=== PATIENT | male | born 1940 | race Caucasian/White ===

== ENCOUNTER 2017-10-21 11:59 | Inpatient (IN) | payer MEDICARE, BC ==
[2017-10-21] MEDS: SOD CHLORIDE 0.9% 500 ML IV (12:15)
[2017-10-21] MEDS: ASPIRIN 325 MG TAB PO (12:45)
[2017-10-21 12:58] LABS: ADD MAN DIFF? NO
[2017-10-21 13:00] LABS: ABNORMAL IP MESSAGE 1; BASOPHILS % 0.6 % (0.0-2.0); EOSINOPHILS % 0.2 % (0.0-7.0); HEMATOCRIT 49.2 % (42.0-52.0); HEMOGLOBIN 16.3 g/dl (14.0-18.0); LYMPHOCYTES # 0.4 10^3/ul (0.8-2.9); LYMPHOCYTES % 7.7 % (15.0-51.0); MEAN CORPUSCULAR HEMOGLOBIN 30.4 pg (29.0-33.0); MEAN CORPUSCULAR HGB CONC 33.1 g/dl (32.0-37.0); MEAN CORPUSCULAR VOLUME 91.8 fl (82.0-101.0); MEAN PLATELET VOLUME 10.8 fl (7.4-10.4); MONOCYTE # 0.3 10^3/ul (0.3-0.9); MONOCYTES % 5.5 % (0.0-11.0); NEUTROPHIL # 4.7 10^3/ul (1.6-7.5); NEUTROPHILS % 85.8 % (39.0-77.0); PLATELET COUNT 193 10^3/UL (140-415); POSITIVE DIFF @See below; RED BLOOD COUNT 5.36 10^6/ul (4.70-6.10)
[2017-10-21 13:00] LABS: WHITE BLOOD COUNT 5.4 10^3/ul (4.8-10.8)
[2017-10-21] MEDS: DILTIAZEM 25 MG INJ IV (13:15)
[2017-10-21] MEDS: METOPROLOL 5 MG INJ IV (13:16)
[2017-10-21] MEDS: morphine 4 MG/ML VIAL IV ×3 (13:26→20:00)
[2017-10-21] MEDS: ONDANSETRON 4 MG INJ IV ×3 (13:26→20:08)
[2017-10-21 13:27] LABS: INR 1.13; PROTIME 14.7 Sec (11.9-14.9); PT RATIO 1.1
[2017-10-21 13:28] LABS: ANION GAP 20 (8-16); BLOOD UREA NITROGEN 10 mg/dl (7-20); CALCIUM 8.7 mg/dl (8.4-10.2); CARBON DIOXIDE 27 mmol/L (21-31); CHLORIDE 103 mmol/L (97-110); CREATININE 0.68 mg/dl (0.61-1.24); GLUCOSE 133 mg/dl (70-220); PARTIAL THROMBOPLASTIN TIME 31.2 Sec (25.0-35.0); POTASSIUM 3.9 mmol/L (3.5-5.1); SODIUM 146 mmol/L (135-144)
[2017-10-21] MEDS: LORAZEPAM 2 MG INJ IV (13:35)
[2017-10-21 13:41] LABS: B-TYPE NATRIURETIC PEPTIDE 2020 PG/ML (0-450)
[2017-10-21 13:51] LABS: TROPONIN-I < 0.012 ng/ml (0.00-0.12)
[2017-10-21] MEDS: ACETAMINOPHEN 325 MG TAB PO (15:28)
[2017-10-21 17:23] LABS: ALANINE AMINOTRANSFERASE 39 IU/L (13-69); ALBUMIN 4.3 g/dl (3.3-4.9); ALKALINE PHOSPHATASE 88 IU/L (42-121); ASPARTATE AMINO TRANSFERASE 47 IU/L (15-46); BILIRUBIN,INDIRECT 0.9 mg/dl (0-1.1); BILIRUBIN,TOTAL 0.9 mg/dl (0.2-1.3); LIPASE 129 U/L (23-300)
[2017-10-21] MEDS ORDERED: NACL 0.9% 3 ML SYG IV (19:30)
[2017-10-21] MEDS ORDERED: ACETAMINOPHEN 325 MG TAB PO (19:30)
[2017-10-21 20:45] LABS: CREATINE KINASE 34 IU/L (23-200)
[2017-10-21 20:58] LABS: CK INDEX 3.3; CK-MB 1.13 ng/ml (0.0-2.4); TROPONIN-I < 0.012 ng/ml (0.00-0.12)
[2017-10-21] MEDS: DILTIAZEM (CD) 180 MG CAP PO (22:36)
[2017-10-21] MEDS: ASPIRIN (EC) 81 MG TAB PO (22:37)
[2017-10-21] MEDS: BUSPIRONE 5 MG TAB PO (22:37)
[2017-10-21] MEDS: SUCRALFATE 1 GM TAB PO (22:38)
[2017-10-21] MEDS: ATORVASTATIN 20 MG TAB PO (22:38)
[2017-10-21] MEDS: APIXABAN 5 MG TABLET PO (22:38)
[2017-10-21] MEDS: METOPROLOL 100 MG TAB PO (22:39)
[2017-10-22 01:00] LABS: CREATINE KINASE 31 IU/L (23-200)
[2017-10-22 01:12] LABS: CK INDEX 3.9
[2017-10-22 01:36] LABS: TROPONIN-I < 0.012 ng/ml (0.00-0.12)
[2017-10-22] MEDS: morphine 4 MG/ML VIAL IV ×3 (02:28→20:50)
[2017-10-22] MEDS: ONDANSETRON 4 MG INJ IV ×4 (02:28→20:50)
[2017-10-22 05:03] LABS: ADD MAN DIFF? NO
[2017-10-22 05:09] LABS: ABNORMAL IP MESSAGE 1; BASOPHILS % 0.4 % (0.0-2.0); HEMATOCRIT 44.9 % (42.0-52.0); HEMOGLOBIN 15.1 g/dl (14.0-18.0); LYMPHOCYTES # 0.4 10^3/ul (0.8-2.9); MEAN CORPUSCULAR HEMOGLOBIN 30.6 pg (29.0-33.0); MEAN CORPUSCULAR HGB CONC 33.6 g/dl (32.0-37.0); MEAN CORPUSCULAR VOLUME 90.9 fl (82.0-101.0); MEAN PLATELET VOLUME 10.9 fl (7.4-10.4); MONOCYTE # 0.5 10^3/ul (0.3-0.9); MONOCYTES % 10.4 % (0.0-11.0); NEUTROPHIL # 4.1 10^3/ul (1.6-7.5); PLATELET COUNT 148 10^3/UL (140-415); POSITIVE DIFF @See below; RED BLOOD COUNT 4.94 10^6/ul (4.70-6.10); RED CELL DISTRIBUTION WIDTH 14.1 % (11.5-14.5)
[2017-10-22 05:37] LABS: ALANINE AMINOTRANSFERASE 33 IU/L (13-69); ALBUMIN 3.7 g/dl (3.3-4.9); ALBUMIN/GLOBULIN RATIO 1.02; ALKALINE PHOSPHATASE 77 IU/L (42-121); ANION GAP 11 (8-16); ASPARTATE AMINO TRANSFERASE 36 IU/L (15-46); BILIRUBIN,INDIRECT 1.6 mg/dl (0-1.1); BILIRUBIN,TOTAL 1.6 mg/dl (0.2-1.3); BLOOD UREA NITROGEN 9 mg/dl (7-20); CALCIUM 8.3 mg/dl (8.4-10.2); CARBON DIOXIDE 28 mmol/L (21-31); CHLORIDE 103 mmol/L (97-110); CREATININE 0.55 mg/dl (0.61-1.24); GLUCOSE 104 mg/dl (70-220); MAGNESIUM 1.6 mg/dl (1.7-2.5); POTASSIUM 3.5 mmol/L (3.5-5.1); SODIUM 138 mmol/L (135-144); TOTAL PROTEIN 7.3 g/dl (6.1-8.1)
[2017-10-22] MEDS: BUSPIRONE 5 MG TAB PO ×2 (09:10→20:50)
[2017-10-22] MEDS: DILTIAZEM (CD) 180 MG CAP PO (09:11)
[2017-10-22] MEDS: SUCRALFATE 1 GM TAB PO ×2 (09:12→20:49)
[2017-10-22] MEDS: ASPIRIN (EC) 81 MG TAB PO (09:13)
[2017-10-22] MEDS: APIXABAN 5 MG TABLET PO ×2 (09:13→20:50)
[2017-10-22] MEDS: LORAZEPAM 0.5 MG TAB PO (09:19)
[2017-10-22] MEDS: PANTOPRAZOLE (EC) 40 MG TAB PO (09:19)
[2017-10-22] MEDS: POTASSIUM CHLORIDE (SR) 10 MEQ TAB PO (15:15)
[2017-10-22] MEDS: METOPROLOL 100 MG TAB PO ×2 (15:16→20:50)
[2017-10-22] MEDS ORDERED: METOPROLOL 50 MG TAB (20:05)
[2017-10-22] MEDS: ATORVASTATIN 20 MG TAB PO (20:49)
[2017-10-23 05:57] LABS: ADD MAN DIFF? NO
[2017-10-23 06:06] LABS: ABNORMAL IP MESSAGE 1; BASOPHILS % 0.2 % (0.0-2.0); HEMATOCRIT 46.7 % (42.0-52.0); HEMOGLOBIN 15.3 g/dl (14.0-18.0); LYMPHOCYTES # 0.3 10^3/ul (0.8-2.9); LYMPHOCYTES % 8.4 % (15.0-51.0); MEAN CORPUSCULAR HEMOGLOBIN 30.3 pg (29.0-33.0); MEAN CORPUSCULAR HGB CONC 32.8 g/dl (32.0-37.0); MEAN CORPUSCULAR VOLUME 92.5 fl (82.0-101.0); MEAN PLATELET VOLUME 11.8 fl (7.4-10.4); MONOCYTE # 0.4 10^3/ul (0.3-0.9); MONOCYTES % 9.4 % (0.0-11.0); NEUTROPHIL # 3.3 10^3/ul (1.6-7.5); NEUTROPHILS % 81.8 % (39.0-77.0); PLATELET COUNT 139 10^3/UL (140-415); POSITIVE DIFF @See below; RED BLOOD COUNT 5.05 10^6/ul (4.70-6.10); RED CELL DISTRIBUTION WIDTH 14.1 % (11.5-14.5)
[2017-10-23 06:06] LABS: WHITE BLOOD COUNT 4.1 10^3/ul (4.8-10.8)
[2017-10-23 06:45] LABS: ANION GAP 12 (8-16); BLOOD UREA NITROGEN 14 mg/dl (7-20); CARBON DIOXIDE 32 mmol/L (21-31); CHLORIDE 101 mmol/L (97-110); CREATININE 0.79 mg/dl (0.61-1.24); GLUCOSE 91 mg/dl (70-220); MAGNESIUM 1.8 mg/dl (1.7-2.5); POTASSIUM 3.9 mmol/L (3.5-5.1); SODIUM 141 mmol/L (135-144)
[2017-10-23] MEDS: PANTOPRAZOLE (EC) 40 MG TAB PO (10:16)
[2017-10-23] MEDS: SUCRALFATE 1 GM TAB PO ×2 (10:16→21:18)
[2017-10-23] MEDS: APIXABAN 5 MG TABLET PO ×2 (10:16→21:18)
[2017-10-23] MEDS: BUSPIRONE 5 MG TAB PO ×2 (10:16→21:18)
[2017-10-23] MEDS: ASPIRIN (EC) 81 MG TAB PO (10:16)
[2017-10-23] MEDS: METOPROLOL 100 MG TAB PO ×2 (10:17→21:18)
[2017-10-23] MEDS: DILTIAZEM (CD) 180 MG CAP PO (10:17)
[2017-10-23] MEDS: MAGNESIUM SULFATE 2 GM/50 ML 50 ML IVPB (17:55)
[2017-10-23] MEDS: METOCLOPRAMIDE 5 MG TAB PO (19:00)
[2017-10-23] MEDS: ATORVASTATIN 20 MG TAB PO (21:18)
[2017-10-24] MEDS ORDERED: METOCLOPRAMIDE 10 MG INJ IV
[2017-10-24] MEDS: METOCLOPRAMIDE 5 MG TAB PO ×2 (05:32)
[2017-10-24] MEDS: APIXABAN 5 MG TABLET PO (11:02)
[2017-10-24] MEDS: ASPIRIN (EC) 81 MG TAB PO (11:02)
[2017-10-24] MEDS: PANTOPRAZOLE (EC) 40 MG TAB PO (11:02)
[2017-10-24] MEDS: DILTIAZEM (CD) 240 MG CAP PO (11:04)
[2017-10-24] MEDS: BUSPIRONE 5 MG TAB PO (11:04)
== END 2017-10-24 14:24 | disposition home or self-care (01) | DRG 392 ==
LOC: E/R 11:59 → MS3 14:13
DX: K21.0 Gastro-esophageal reflux disease with esophagitis (principal); I42.1 Obstructive hypertrophic cardiomyopathy; I48.91 Unspecified atrial fibrillation; R07.89 Other chest pain; I25.10 Atherosclerotic heart disease of native coronary artery without angina pectoris; I10 Essential (primary) hypertension; F41.9 Anxiety disorder, unspecified; K80.20 Calculus of gallbladder without cholecystitis without obstruction; Z95.5 Presence of coronary angioplasty implant and graft
CPT/HCPCS: 36415; 71045; 74176; 80048; 80053; 80076; 82550; 82553; 83690; 83735; 83880; 84484; 85025; 85610; 85730; 93005; 96374; 96375; 99291-25

== ENCOUNTER 2017-11-23 14:08 | Emergency (ER) | payer MEDICARE, BC ==
[2017-11-23] MEDS: LORAZEPAM 2 MG INJ IV (17:29)
[2017-11-23 17:44] LABS: ADD MAN DIFF? NO
[2017-11-23 17:52] LABS: ABNORMAL IP MESSAGE 1; BASOPHILS % 0.9 % (0.0-2.0); EOSINOPHILS % 0.3 % (0.0-7.0); HEMATOCRIT 46.8 % (42.0-52.0); HEMOGLOBIN 15.7 g/dl (14.0-18.0); LYMPHOCYTES # 0.3 10^3/ul (0.8-2.9); LYMPHOCYTES % 9.7 % (15.0-51.0); MEAN CORPUSCULAR HEMOGLOBIN 30.1 pg (29.0-33.0); MEAN CORPUSCULAR HGB CONC 33.5 g/dl (32.0-37.0); MEAN CORPUSCULAR VOLUME 89.8 fl (82.0-101.0); MONOCYTE # 0.4 10^3/ul (0.3-0.9); MONOCYTES % 12.2 % (0.0-11.0); NEUTROPHIL # 2.7 10^3/ul (1.6-7.5); NEUTROPHILS % 76.6 % (39.0-77.0); PLATELET COUNT 140 10^3/UL (140-415); POSITIVE DIFF @See below; RED BLOOD COUNT 5.21 10^6/ul (4.70-6.10); RED CELL DISTRIBUTION WIDTH 14.6 % (11.5-14.5)
[2017-11-23 17:52] LABS: WHITE BLOOD COUNT 3.5 10^3/ul (4.8-10.8)
[2017-11-23 18:09] LABS: ALANINE AMINOTRANSFERASE 30 IU/L (13-69); ALBUMIN 4.3 g/dl (3.3-4.9); ALBUMIN/GLOBULIN RATIO 1.26; ALKALINE PHOSPHATASE 88 IU/L (42-121); ANION GAP 14 (8-16); ASPARTATE AMINO TRANSFERASE 37 IU/L (15-46); BILIRUBIN,INDIRECT 1.7 mg/dl (0-1.1); BILIRUBIN,TOTAL 1.7 mg/dl (0.2-1.3); BLOOD UREA NITROGEN 11 mg/dl (7-20); CALCIUM 8.9 mg/dl (8.4-10.2); CARBON DIOXIDE 26 mmol/L (21-31); CHLORIDE 105 mmol/L (97-110); CREATINE KINASE 44 IU/L (23-200); CREATININE 0.69 mg/dl (0.61-1.24); GLUCOSE 101 mg/dl (70-220); POTASSIUM 3.4 mmol/L (3.5-5.1); SODIUM 142 mmol/L (135-144); TOTAL PROTEIN 7.7 g/dl (6.1-8.1)
[2017-11-23 18:21] LABS: B-TYPE NATRIURETIC PEPTIDE 2970 PG/ML (0-450); CK INDEX 2.5
[2017-11-23 18:31] LABS: CK-MB 1.11 ng/ml (0.0-2.4); TROPONIN-I < 0.012 ng/ml (0.00-0.12)
[2017-11-23] MEDS: ALBUTEROL 0.083% (NEB) 2.5 MG/3 ML AMP INH (19:12)
[2017-11-23] MEDS: IPRATROPIUM (NEB) 0.5 MG/2.5 ML AMP INH (19:12)
== END 2017-11-23 20:37 | disposition home or self-care (01) ==
LOC: E/R 14:08
DX: R06.02 Shortness of breath (principal); R00.2 Palpitations; I10 Essential (primary) hypertension; Z79.82 Long term (current) use of aspirin; Z98.61 Coronary angioplasty status
CPT/HCPCS: 71045; 80053; 82550; 82553; 83880; 84484; 85025; 93005; 94664; 96374; 99285-25

== ENCOUNTER 2018-02-23 14:33 | Inpatient (IN) | payer MEDICARE, BC ==
[2018-02-23 15:18] LABS: ADD MAN DIFF? NO
[2018-02-23 15:20] LABS: ABNORMAL IP MESSAGE 1; BASOPHILS % 0.7 % (0.0-2.0); HEMATOCRIT 47.6 % (42.0-52.0); HEMOGLOBIN 15.7 g/dl (14.0-18.0); LYMPHOCYTES # 0.5 10^3/ul (0.8-2.9); LYMPHOCYTES % 12.8 % (15.0-51.0); MEAN CORPUSCULAR HEMOGLOBIN 29.8 pg (29.0-33.0); MEAN CORPUSCULAR VOLUME 90.3 fl (82.0-101.0); MEAN PLATELET VOLUME 11.5 fl (7.4-10.4); MONOCYTE # 0.4 10^3/ul (0.3-0.9); MONOCYTES % 10.4 % (0.0-11.0); NEUTROPHIL # 3.2 10^3/ul (1.6-7.5); NEUTROPHILS % 75.9 % (39.0-77.0); PLATELET COUNT 131 10^3/UL (140-415); POSITIVE DIFF @See below; RED BLOOD COUNT 5.27 10^6/ul (4.70-6.10); RED CELL DISTRIBUTION WIDTH 14.1 % (11.5-14.5)
[2018-02-23 15:20] LABS: WHITE BLOOD COUNT 4.2 10^3/ul (4.8-10.8)
[2018-02-23] MEDS: ONDANSETRON 4 MG INJ IV ×4 (15:27→23:05)
[2018-02-23] MEDS: SOD CHLORIDE 0.9% 1,000 ML IV (15:27)
[2018-02-23] MEDS: morphine 4 MG/ML VIAL IV (15:27)
[2018-02-23 15:40] LABS: ALANINE AMINOTRANSFERASE 34 IU/L (13-69); ALBUMIN 4.4 g/dl (3.3-4.9); ALBUMIN/GLOBULIN RATIO 1.12; ALKALINE PHOSPHATASE 87 IU/L (42-121); AMYLASE 51 U/L (11-123); ANION GAP 22 (8-16); ASPARTATE AMINO TRANSFERASE 64 IU/L (15-46); BILIRUBIN,INDIRECT 1.7 mg/dl (0-1.1); BILIRUBIN,TOTAL 1.7 mg/dl (0.2-1.3); BLOOD UREA NITROGEN 11 mg/dl (7-20); CARBON DIOXIDE 26 mmol/L (21-31); CHLORIDE 102 mmol/L (97-110); CREATININE 0.75 mg/dl (0.61-1.24); GLUCOSE 89 mg/dl (70-220); LIPASE 134 U/L (23-300); POTASSIUM 3.9 mmol/L (3.5-5.1); SODIUM 146 mmol/L (135-144); TOTAL PROTEIN 8.3 g/dl (6.1-8.1)
[2018-02-23 15:45] LABS: INR 1.38; PROTIME 17.2 Sec (11.9-14.9); PT RATIO 1.3
[2018-02-23 15:46] LABS: PARTIAL THROMBOPLASTIN TIME 35.6 Sec (25.0-35.0)
[2018-02-23 15:50] LABS: B-TYPE NATRIURETIC PEPTIDE 2440 PG/ML (0-450); TROPONIN-I < 0.012 ng/ml (0.00-0.12)
[2018-02-23] MEDS: HYDROmorphONE 1 MG/5 ML IV SYRINGE IV ×2 (16:47→20:00)
[2018-02-23] MEDS: SOD CHLORIDE 0.9% 100 ML (17:10)
[2018-02-23] MEDS: IOHEXOL 300MG/ML 150 ML BTL (17:11)
[2018-02-23] MEDS ORDERED: ACETAMINOPHEN 325 MG TAB PO (18:30)
[2018-02-23] MEDS: METOPROLOL 100 MG TAB PO (22:30)
[2018-02-23] MEDS: APIXABAN 5 MG TABLET PO (22:30)
[2018-02-23] MEDS ORDERED: ZOLPIDEM 5 MG TAB PO (22:30)
[2018-02-23] MEDS: BUSPIRONE 5 MG TAB PO (22:30)
[2018-02-23] MEDS: SUCRALFATE 1 GM TAB PO (22:30)
[2018-02-23] MEDS: morphine 2 MG INJ IV (23:10)
[2018-02-24] MEDS: ONDANSETRON 4 MG INJ IV ×2 (01:13→09:03)
[2018-02-24] MEDS: DICYCLOMINE 10 MG CAP PO (01:13)
[2018-02-24 06:25] LABS: ADD MAN DIFF? NO
[2018-02-24 06:28] LABS: ABNORMAL IP MESSAGE 1; BASOPHILS % 0.3 % (0.0-2.0); HEMATOCRIT 44.3 % (42.0-52.0); HEMOGLOBIN 14.7 g/dl (14.0-18.0); LYMPHOCYTES # 0.2 10^3/ul (0.8-2.9); LYMPHOCYTES % 7.2 % (15.0-51.0); MEAN CORPUSCULAR HEMOGLOBIN 29.7 pg (29.0-33.0); MEAN CORPUSCULAR HGB CONC 33.2 g/dl (32.0-37.0); MEAN CORPUSCULAR VOLUME 89.5 fl (82.0-101.0); MEAN PLATELET VOLUME 11.5 fl (7.4-10.4); MONOCYTE # 0.2 10^3/ul (0.3-0.9); MONOCYTES % 7.2 % (0.0-11.0); NEUTROPHIL # 2.7 10^3/ul (1.6-7.5); NEUTROPHILS % 84.7 % (39.0-77.0); PLATELET COUNT 105 10^3/UL (140-415); POSITIVE DIFF @See below; RED BLOOD COUNT 4.95 10^6/ul (4.70-6.10); RED CELL DISTRIBUTION WIDTH 14.1 % (11.5-14.5)
[2018-02-24 06:28] LABS: WHITE BLOOD COUNT 3.2 10^3/ul (4.8-10.8)
[2018-02-24 06:50] LABS: ALANINE AMINOTRANSFERASE 30 IU/L (13-69); ALBUMIN/GLOBULIN RATIO 1.11; ALKALINE PHOSPHATASE 76 IU/L (42-121); ANION GAP 21 (8-16); ASPARTATE AMINO TRANSFERASE 52 IU/L (15-46); BILIRUBIN,INDIRECT 1.2 mg/dl (0-1.1); BILIRUBIN,TOTAL 1.2 mg/dl (0.2-1.3); BLOOD UREA NITROGEN 10 mg/dl (7-20); CALCIUM 8.6 mg/dl (8.4-10.2); CARBON DIOXIDE 25 mmol/L (21-31); CHLORIDE 104 mmol/L (97-110); CREATININE 0.64 mg/dl (0.61-1.24); GLUCOSE 127 mg/dl (70-220); LIPASE 36 U/L (23-300); POTASSIUM 3.9 mmol/L (3.5-5.1); SODIUM 146 mmol/L (135-144); TOTAL PROTEIN 7.6 g/dl (6.1-8.1)
[2018-02-24 07:01] LABS: AMYLASE 41 U/L (11-123)
[2018-02-24] MEDS: PANTOPRAZOLE (EC) 40 MG TAB PO (07:05)
[2018-02-24] MEDS: LORAZEPAM 0.5 MG TAB PO ×2 (09:03→20:38)
[2018-02-24] MEDS: BUSPIRONE 5 MG TAB PO ×2 (09:04→20:38)
[2018-02-24] MEDS: SUCRALFATE 1 GM TAB PO ×2 (09:04→20:38)
[2018-02-24] MEDS: APIXABAN 5 MG TABLET PO ×2 (09:04→20:38)
[2018-02-24] MEDS: morphine 2 MG INJ IV ×2 (09:04→20:38)
[2018-02-24] MEDS: ASPIRIN (EC) 81 MG TAB PO (09:04)
[2018-02-24] MEDS: DILTIAZEM (CD) 180 MG CAP PO (09:05)
[2018-02-24] MEDS: METOPROLOL 100 MG TAB PO ×2 (09:05→20:39)
[2018-02-24 12:15] LABS: TROPONIN-I < 0.012 ng/ml (0.00-0.12)
[2018-02-24] MEDS: ATORVASTATIN 20 MG TAB PO (20:38)
[2018-02-25] MEDS: PANTOPRAZOLE (EC) 40 MG TAB PO (06:13)
[2018-02-25] MEDS: DILTIAZEM (CD) 180 MG CAP PO ×2 (08:19→20:17)
[2018-02-25] MEDS: SUCRALFATE 1 GM TAB PO ×2 (08:19→20:16)
[2018-02-25] MEDS: BUSPIRONE 5 MG TAB PO ×2 (08:19→20:17)
[2018-02-25] MEDS: APIXABAN 5 MG TABLET PO ×2 (08:20→20:16)
[2018-02-25] MEDS: METOPROLOL 100 MG TAB PO ×2 (08:20→20:16)
[2018-02-25] MEDS: ASPIRIN (EC) 81 MG TAB PO (08:20)
[2018-02-25 08:24] LABS: ADD MAN DIFF? NO
[2018-02-25 08:32] LABS: ABNORMAL IP MESSAGE 1; BASOPHILS % 0.4 % (0.0-2.0); EOSINOPHILS % 0.4 % (0.0-7.0); HEMATOCRIT 46.4 % (42.0-52.0); HEMOGLOBIN 14.9 g/dl (14.0-18.0); LYMPHOCYTES # 0.6 10^3/ul (0.8-2.9); LYMPHOCYTES % 11.4 % (15.0-51.0); MEAN CORPUSCULAR HEMOGLOBIN 29.6 pg (29.0-33.0); MEAN CORPUSCULAR HGB CONC 32.1 g/dl (32.0-37.0); MEAN CORPUSCULAR VOLUME 92.1 fl (82.0-101.0); MEAN PLATELET VOLUME 11.9 fl (7.4-10.4); MONOCYTE # 0.5 10^3/ul (0.3-0.9); MONOCYTES % 10.1 % (0.0-11.0); NEUTROPHIL # 3.8 10^3/ul (1.6-7.5); NEUTROPHILS % 77.5 % (39.0-77.0); PLATELET COUNT 108 10^3/UL (140-415); POSITIVE DIFF @See below; RED BLOOD COUNT 5.04 10^6/ul (4.70-6.10); RED CELL DISTRIBUTION WIDTH 14.5 % (11.5-14.5)
[2018-02-25 08:32] LABS: WHITE BLOOD COUNT 4.9 10^3/ul (4.8-10.8)
[2018-02-25 08:47] LABS: ANION GAP 17 (8-16); BLOOD UREA NITROGEN 10 mg/dl (7-20); CALCIUM 8.6 mg/dl (8.4-10.2); CARBON DIOXIDE 27 mmol/L (21-31); CHLORIDE 101 mmol/L (97-110); CREATININE 0.69 mg/dl (0.61-1.24); GLUCOSE 92 mg/dl (70-220); POTASSIUM 3.1 mmol/L (3.5-5.1); SODIUM 142 mmol/L (135-144)
[2018-02-25] MEDS: POTASSIUM CHLORIDE 100 ML IVPB (12:38)
[2018-02-25] MEDS: POTASSIUM CHLORIDE (SR) 10 MEQ TAB PO (12:38)
[2018-02-25] MEDS: ATORVASTATIN 20 MG TAB PO (20:16)
[2018-02-26] MEDS: PANTOPRAZOLE (EC) 40 MG TAB PO (05:24)
[2018-02-26 07:11] LABS: ADD MAN DIFF? NO
[2018-02-26 07:13] LABS: ABNORMAL IP MESSAGE 1; BASOPHILS % 0.6 % (0.0-2.0); EOSINOPHILS % 1.2 % (0.0-7.0); HEMATOCRIT 42.8 % (42.0-52.0); HEMOGLOBIN 13.8 g/dl (14.0-18.0); LYMPHOCYTES # 0.3 10^3/ul (0.8-2.9); LYMPHOCYTES % 9.3 % (15.0-51.0); MEAN CORPUSCULAR HEMOGLOBIN 29.9 pg (29.0-33.0); MEAN CORPUSCULAR HGB CONC 32.2 g/dl (32.0-37.0); MEAN CORPUSCULAR VOLUME 92.8 fl (82.0-101.0); MEAN PLATELET VOLUME 12.2 fl (7.4-10.4); MONOCYTE # 0.4 10^3/ul (0.3-0.9); MONOCYTES % 12.4 % (0.0-11.0); NEUTROPHIL # 2.5 10^3/ul (1.6-7.5); NEUTROPHILS % 76.2 % (39.0-77.0); PLATELET COUNT 84 10^3/UL (140-415); POSITIVE DIFF @See below; RED BLOOD COUNT 4.61 10^6/ul (4.70-6.10); RED CELL DISTRIBUTION WIDTH 14.3 % (11.5-14.5)
[2018-02-26 07:13] LABS: WHITE BLOOD COUNT 3.2 10^3/ul (4.8-10.8)
[2018-02-26 07:37] LABS: ANION GAP 11 (8-16); BLOOD UREA NITROGEN 12 mg/dl (7-20); CALCIUM 8.7 mg/dl (8.4-10.2); CARBON DIOXIDE 32 mmol/L (21-31); CHLORIDE 103 mmol/L (97-110); CREATININE 0.71 mg/dl (0.61-1.24); GLUCOSE 98 mg/dl (70-220); MAGNESIUM 1.8 mg/dl (1.7-2.5); POTASSIUM 3.8 mmol/L (3.5-5.1); SODIUM 142 mmol/L (135-144)
[2018-02-26] MEDS: APIXABAN 5 MG TABLET PO ×2 (08:43→21:06)
[2018-02-26] MEDS: SUCRALFATE 1 GM TAB PO ×2 (08:43→21:06)
[2018-02-26] MEDS: ASPIRIN (EC) 81 MG TAB PO (08:43)
[2018-02-26] MEDS: DILTIAZEM (CD) 180 MG CAP PO ×2 (08:44→21:07)
[2018-02-26] MEDS: METOPROLOL 100 MG TAB PO ×2 (08:44→21:07)
[2018-02-26] MEDS: BUSPIRONE 5 MG TAB PO ×2 (08:44→21:06)
[2018-02-26] MEDS: MAGNESIUM SULFATE 2 GM/50 ML 50 ML IVPB (12:46)
[2018-02-26] MEDS: DOCUSATE SODIUM 100 MG CAP PO (12:46)
[2018-02-26] MEDS: MAGNESIUM HYDROXIDE 30ML CUP PO (12:46)
[2018-02-26] MEDS: POTASSIUM CHLORIDE (SR) 10 MEQ TAB PO (12:47)
[2018-02-26] MEDS: morphine LIQ (10 MG/5 ML) CUP PO (17:53)
[2018-02-26] MEDS: LUBIPROSTONE 24 MCG CAP PO (21:05)
[2018-02-26] MEDS: ATORVASTATIN 20 MG TAB PO (21:06)
[2018-02-26] MEDS ORDERED: NAPHAZOLINE 0.012% 15 ML OPH BOTH EYES (21:30)
[2018-02-26] MEDS: ARTIFICIAL TEARS 15 ML OPH BOTH EYES (23:58)
[2018-02-27] MEDS: PANTOPRAZOLE (EC) 40 MG TAB PO (05:45)
[2018-02-27] MEDS: DICYCLOMINE 10 MG CAP PO ×3 (07:30→17:16)
[2018-02-27] MEDS: ASPIRIN (EC) 81 MG TAB PO (08:32)
[2018-02-27] MEDS: BUSPIRONE 5 MG TAB PO ×2 (08:32→20:33)
[2018-02-27] MEDS: APIXABAN 5 MG TABLET PO (08:32)
[2018-02-27] MEDS: DOCUSATE SODIUM 100 MG CAP PO (08:32)
[2018-02-27] MEDS: SUCRALFATE 1 GM TAB PO ×2 (08:32→20:34)
[2018-02-27] MEDS: METOPROLOL 100 MG TAB PO ×2 (08:32→20:35)
[2018-02-27] MEDS: LUBIPROSTONE 24 MCG CAP PO ×3 (08:32→20:35)
[2018-02-27] MEDS: DILTIAZEM (CD) 180 MG CAP PO ×2 (08:32→20:34)
[2018-02-27 08:56] LABS: ADD MAN DIFF? NO
[2018-02-27 08:58] LABS: ABNORMAL IP MESSAGE 1; BASOPHILS % 0.6 % (0.0-2.0); EOSINOPHILS # 0.1 10^3/ul (0.0-0.5); EOSINOPHILS % 1.8 % (0.0-7.0); HEMATOCRIT 43.5 % (42.0-52.0); HEMOGLOBIN 14.1 g/dl (14.0-18.0); LYMPHOCYTES # 0.3 10^3/ul (0.8-2.9); LYMPHOCYTES % 9.6 % (15.0-51.0); MEAN CORPUSCULAR HEMOGLOBIN 29.9 pg (29.0-33.0); MEAN CORPUSCULAR HGB CONC 32.4 g/dl (32.0-37.0); MEAN CORPUSCULAR VOLUME 92.4 fl (82.0-101.0); MEAN PLATELET VOLUME 12.3 fl (7.4-10.4); MONOCYTE # 0.5 10^3/ul (0.3-0.9); MONOCYTES % 14.1 % (0.0-11.0); NEUTROPHIL # 2.5 10^3/ul (1.6-7.5); NEUTROPHILS % 73.6 % (39.0-77.0); PLATELET COUNT 95 10^3/UL (140-415); POSITIVE DIFF @See below; RED BLOOD COUNT 4.71 10^6/ul (4.70-6.10); RED CELL DISTRIBUTION WIDTH 14.4 % (11.5-14.5)
[2018-02-27 08:58] LABS: WHITE BLOOD COUNT 3.3 10^3/ul (4.8-10.8)
[2018-02-27 09:29] LABS: ANION GAP 11 (8-16); BLOOD UREA NITROGEN 13 mg/dl (7-20); CARBON DIOXIDE 28 mmol/L (21-31); CHLORIDE 104 mmol/L (97-110); CREATININE 0.59 mg/dl (0.61-1.24); GLUCOSE 84 mg/dl (70-220); MAGNESIUM 2.3 mg/dl (1.7-2.5); POTASSIUM 3.8 mmol/L (3.5-5.1); SODIUM 139 mmol/L (135-144)
[2018-02-27] MEDS: POTASSIUM CHLORIDE (SR) 20 MEQ TAB PO (13:14)
[2018-02-27] MEDS: ATORVASTATIN 20 MG TAB PO (20:33)
[2018-02-27 21:15] LABS: ADD MAN DIFF? NO
[2018-02-27 23:11] LABS: WHITE BLOOD COUNT 3.1 10^3/ul (4.8-10.8)
[2018-02-27 23:11] LABS: ABNORMAL IP MESSAGE 1; BASOPHILS % 0.3 % (0.0-2.0); EOSINOPHILS # 0.1 10^3/ul (0.0-0.5); EOSINOPHILS % 1.9 % (0.0-7.0); HEMATOCRIT 43.9 % (42.0-52.0); HEMOGLOBIN 14.3 g/dl (14.0-18.0); LYMPHOCYTES # 0.3 10^3/ul (0.8-2.9); LYMPHOCYTES % 10.2 % (15.0-51.0); MEAN CORPUSCULAR HEMOGLOBIN 30.2 pg (29.0-33.0); MEAN CORPUSCULAR HGB CONC 32.6 g/dl (32.0-37.0); MEAN CORPUSCULAR VOLUME 92.8 fl (82.0-101.0); MEAN PLATELET VOLUME 11.5 fl (7.4-10.4); MONOCYTE # 0.4 10^3/ul (0.3-0.9); MONOCYTES % 13.4 % (0.0-11.0); NEUTROPHIL # 2.3 10^3/ul (1.6-7.5); NEUTROPHILS % 73.9 % (39.0-77.0); PLATELET COUNT 102 10^3/UL (140-415); POSITIVE DIFF @See below; RED BLOOD COUNT 4.73 10^6/ul (4.70-6.10); RED CELL DISTRIBUTION WIDTH 14.5 % (11.5-14.5)
[2018-02-28] MEDS: PANTOPRAZOLE (EC) 40 MG TAB PO (05:18)
[2018-02-28 06:28] LABS: ADD MAN DIFF? NO
[2018-02-28 06:38] LABS: ABNORMAL IP MESSAGE 1; BASOPHILS % 0.6 % (0.0-2.0); EOSINOPHILS # 0.1 10^3/ul (0.0-0.5); EOSINOPHILS % 2.8 % (0.0-7.0); HEMATOCRIT 42.1 % (42.0-52.0); HEMOGLOBIN 13.8 g/dl (14.0-18.0); LYMPHOCYTES # 0.3 10^3/ul (0.8-2.9); LYMPHOCYTES % 9.9 % (15.0-51.0); MEAN CORPUSCULAR HEMOGLOBIN 30.1 pg (29.0-33.0); MEAN CORPUSCULAR HGB CONC 32.8 g/dl (32.0-37.0); MEAN CORPUSCULAR VOLUME 91.7 fl (82.0-101.0); MEAN PLATELET VOLUME 11.8 fl (7.4-10.4); MONOCYTE # 0.6 10^3/ul (0.3-0.9); MONOCYTES % 18.9 % (0.0-11.0); NEUTROPHIL # 2.2 10^3/ul (1.6-7.5); NEUTROPHILS % 67.5 % (39.0-77.0); PLATELET COUNT 102 10^3/UL (140-415); POSITIVE DIFF @See below; RED BLOOD COUNT 4.59 10^6/ul (4.70-6.10); RED CELL DISTRIBUTION WIDTH 14.6 % (11.5-14.5)
[2018-02-28 06:38] LABS: WHITE BLOOD COUNT 3.2 10^3/ul (4.8-10.8)
[2018-02-28 06:58] LABS: ANION GAP 13 (8-16); BLOOD UREA NITROGEN 12 mg/dl (7-20); CALCIUM 8.5 mg/dl (8.4-10.2); CARBON DIOXIDE 25 mmol/L (21-31); CHLORIDE 107 mmol/L (97-110); CREATININE 0.55 mg/dl (0.61-1.24); GLUCOSE 94 mg/dl (70-220); MAGNESIUM 2.2 mg/dl (1.7-2.5); POTASSIUM 3.9 mmol/L (3.5-5.1); SODIUM 141 mmol/L (135-144)
[2018-02-28 07:13] LABS: T4 (THYROXINE) 8.5 ug/dl (5.5-11.0)
[2018-02-28] MEDS: BUSPIRONE 5 MG TAB PO ×2 (08:24→20:46)
[2018-02-28] MEDS: SUCRALFATE 1 GM TAB PO ×2 (08:24→20:45)
[2018-02-28] MEDS: DILTIAZEM (CD) 180 MG CAP PO ×2 (08:24→20:45)
[2018-02-28] MEDS: METOPROLOL 100 MG TAB PO ×2 (08:24→20:46)
[2018-02-28] MEDS: DICYCLOMINE 10 MG CAP PO ×3 (08:25→17:26)
[2018-02-28] MEDS: LUBIPROSTONE 24 MCG CAP PO ×2 (08:25→20:46)
[2018-02-28] MEDS: ATORVASTATIN 20 MG TAB PO (20:45)
[2018-03-01] MEDS: PANTOPRAZOLE (EC) 40 MG TAB PO (05:15)
[2018-03-01 06:11] LABS: ADD MAN DIFF? NO
[2018-03-01 06:16] LABS: ABNORMAL IP MESSAGE 1; BASOPHILS % 0.6 % (0.0-2.0); EOSINOPHILS # 0.1 10^3/ul (0.0-0.5); EOSINOPHILS % 2.5 % (0.0-7.0); HEMATOCRIT 43.1 % (42.0-52.0); HEMOGLOBIN 13.9 g/dl (14.0-18.0); LYMPHOCYTES # 0.4 10^3/ul (0.8-2.9); LYMPHOCYTES % 12.1 % (15.0-51.0); MEAN CORPUSCULAR HEMOGLOBIN 29.8 pg (29.0-33.0); MEAN CORPUSCULAR HGB CONC 32.3 g/dl (32.0-37.0); MEAN CORPUSCULAR VOLUME 92.5 fl (82.0-101.0); MEAN PLATELET VOLUME 11.2 fl (7.4-10.4); MONOCYTE # 0.7 10^3/ul (0.3-0.9); MONOCYTES % 20.9 % (0.0-11.0); NEUTROPHILS % 63.6 % (39.0-77.0); PLATELET COUNT 115 10^3/UL (140-415); POSITIVE DIFF @See below; RED BLOOD COUNT 4.66 10^6/ul (4.70-6.10); RED CELL DISTRIBUTION WIDTH 14.9 % (11.5-14.5)
[2018-03-01 06:16] LABS: WHITE BLOOD COUNT 3.2 10^3/ul (4.8-10.8)
[2018-03-01 06:49] LABS: ANION GAP 13 (8-16); BLOOD UREA NITROGEN 12 mg/dl (7-20); CALCIUM 8.6 mg/dl (8.4-10.2); CARBON DIOXIDE 29 mmol/L (21-31); CHLORIDE 106 mmol/L (97-110); GLUCOSE 92 mg/dl (70-220); POTASSIUM 4.1 mmol/L (3.5-5.1); SODIUM 144 mmol/L (135-144)
[2018-03-01] MEDS: LUBIPROSTONE 24 MCG CAP PO (08:59)
[2018-03-01] MEDS: BUSPIRONE 5 MG TAB PO ×2 (08:59→20:45)
[2018-03-01] MEDS: SUCRALFATE 1 GM TAB PO ×2 (08:59→20:43)
[2018-03-01] MEDS: DICYCLOMINE 10 MG CAP PO ×3 (08:59→18:41)
[2018-03-01] MEDS: LUBIPROSTONE 8 MCG CAPSULE PO ×2 (09:00→20:42)
[2018-03-01] MEDS: METOPROLOL 100 MG TAB PO ×2 (09:01→20:43)
[2018-03-01] MEDS: DILTIAZEM (CD) 180 MG CAP PO ×2 (10:15→20:44)
[2018-03-01] MEDS: DEXAMETHASONE 0.1% 5 ML OPH BOTH EYES ×2 (13:53→20:49)
[2018-03-01] MEDS: ATORVASTATIN 20 MG TAB PO (20:42)
[2018-03-01 23:20] LABS: OCCULT BLOOD STOOL NEGATIVE (NEGATIVE)
[2018-03-02] MEDS: PANTOPRAZOLE (EC) 40 MG TAB PO (05:28)
[2018-03-02 06:21] LABS: ADD MAN DIFF? NO
[2018-03-02 06:25] LABS: ABNORMAL IP MESSAGE 1; BASOPHILS % 0.7 % (0.0-2.0); EOSINOPHILS # 0.1 10^3/ul (0.0-0.5); EOSINOPHILS % 2.6 % (0.0-7.0); HEMATOCRIT 42.3 % (42.0-52.0); HEMOGLOBIN 13.9 g/dl (14.0-18.0); LYMPHOCYTES # 0.4 10^3/ul (0.8-2.9); LYMPHOCYTES % 13.1 % (15.0-51.0); MEAN CORPUSCULAR HGB CONC 32.9 g/dl (32.0-37.0); MEAN CORPUSCULAR VOLUME 91.2 fl (82.0-101.0); MEAN PLATELET VOLUME 10.9 fl (7.4-10.4); MONOCYTE # 0.6 10^3/ul (0.3-0.9); MONOCYTES % 22.4 % (0.0-11.0); NEUTROPHIL # 1.6 10^3/ul (1.6-7.5); NEUTROPHILS % 60.8 % (39.0-77.0); PLATELET COUNT 130 10^3/UL (140-415); POSITIVE DIFF @See below; RED BLOOD COUNT 4.64 10^6/ul (4.70-6.10); RED CELL DISTRIBUTION WIDTH 14.8 % (11.5-14.5)
[2018-03-02 06:25] LABS: WHITE BLOOD COUNT 2.7 10^3/ul (4.8-10.8)
[2018-03-02 07:04] LABS: ANION GAP 12 (8-16); BLOOD UREA NITROGEN 11 mg/dl (7-20); CALCIUM 8.9 mg/dl (8.4-10.2); CARBON DIOXIDE 28 mmol/L (21-31); CHLORIDE 107 mmol/L (97-110); CREATININE 0.67 mg/dl (0.61-1.24); GLUCOSE 94 mg/dl (70-220); POTASSIUM 3.8 mmol/L (3.5-5.1); SODIUM 143 mmol/L (135-144)
[2018-03-02] MEDS: DICYCLOMINE 10 MG CAP PO ×2 (08:14→13:04)
[2018-03-02] MEDS: DEXAMETHASONE 0.1% 5 ML OPH BOTH EYES ×2 (08:14→13:04)
[2018-03-02] MEDS: LUBIPROSTONE 8 MCG CAPSULE PO (08:14)
[2018-03-02] MEDS: SUCRALFATE 1 GM TAB PO (08:37)
[2018-03-02] MEDS: METOPROLOL 100 MG TAB PO (08:38)
[2018-03-02] MEDS: BUSPIRONE 5 MG TAB PO (08:38)
[2018-03-02] MEDS: DILTIAZEM (CD) 180 MG CAP PO (09:24)
== END 2018-03-02 16:45 | disposition home or self-care (01) | DRG 392 ==
LOC: MS4 03-01 05:29 → E/R 14:33 → TEL 18:25
DX: K30 Functional dyspepsia (principal); I42.1 Obstructive hypertrophic cardiomyopathy; K21.9 Gastro-esophageal reflux disease without esophagitis; K29.70 Gastritis, unspecified, without bleeding; I48.2 Chronic atrial fibrillation; Z79.01 Long term (current) use of anticoagulants; I10 Essential (primary) hypertension; Z86.73 Personal history of transient ischemic attack (TIA), and cerebral infarction without residual deficits; Z95.5 Presence of coronary angioplasty implant and graft; Z72.89 Other problems related to lifestyle; Z87.891 Personal history of nicotine dependence; K57.90 Diverticulosis of intestine, part unspecified, without perforation or abscess without bleeding; F41.9 Anxiety disorder, unspecified; D72.819 Decreased white blood cell count, unspecified; K59.00 Constipation, unspecified; D69.6 Thrombocytopenia, unspecified; R19.5 Other fecal abnormalities
CPT/HCPCS: 71045; 74177; 80048; 80053; 82150; 82270; 82962; 83690; 83735; 83880; 84436; 84443; 84484; 85025; 85610; 85730; 87040; 93005; 96374; 96375; 96376; 99285-25; G0378

== ENCOUNTER 2018-05-29 10:48 | Inpatient (IN) | payer MEDICARE, BC ==
[2018-05-29 11:26] LABS: ADD MAN DIFF? NO
[2018-05-29 11:28] LABS: ABNORMAL IP MESSAGE 1; BASOPHILS % 0.2 % (0.0-2.0); HEMATOCRIT 47.8 % (42.0-52.0); HEMOGLOBIN 15.7 g/dl (14.0-18.0); LYMPHOCYTES # 0.5 10^3/ul (0.8-2.9); LYMPHOCYTES % 11.2 % (15.0-51.0); MEAN CORPUSCULAR HEMOGLOBIN 28.6 pg (29.0-33.0); MEAN CORPUSCULAR HGB CONC 32.8 g/dl (32.0-37.0); MEAN CORPUSCULAR VOLUME 87.2 fl (82.0-101.0); MEAN PLATELET VOLUME 10.1 fl (7.4-10.4); MONOCYTE # 0.4 10^3/ul (0.3-0.9); MONOCYTES % 8.7 % (0.0-11.0); NEUTROPHIL # 3.2 10^3/ul (1.6-7.5); NEUTROPHILS % 79.7 % (39.0-77.0); PLATELET COUNT 152 10^3/UL (140-415); POSITIVE DIFF @See below; RED BLOOD COUNT 5.48 10^6/ul (4.70-6.10); RED CELL DISTRIBUTION WIDTH 15.5 % (11.5-14.5)
[2018-05-29] MEDS: ONDANSETRON 4 MG INJ IV (11:29)
[2018-05-29] MEDS: LIDOCAINE/MYLANTA 40 ML BTL PO (11:29)
[2018-05-29] MEDS: FAMOTIDINE 20 MG TAB PO (11:29)
[2018-05-29] MEDS: SOD CHLORIDE 0.9% 500 ML IV (11:29)
[2018-05-29] MEDS: BELLADONNA/PHENOBARBITAL TAB PO (11:29)
[2018-05-29] MEDS: KETOROLAC 15 MG INJ IV (11:30)
[2018-05-29 11:46] LABS: ALANINE AMINOTRANSFERASE 40 IU/L (13-69); ALBUMIN 4.3 g/dl (3.3-4.9); ALBUMIN/GLOBULIN RATIO 0.97; ALKALINE PHOSPHATASE 85 IU/L (42-121); ANION GAP 21 (8-16); ASPARTATE AMINO TRANSFERASE 100 IU/L (15-46); BILIRUBIN,INDIRECT 1.3 mg/dl (0-1.1); BILIRUBIN,TOTAL 1.3 mg/dl (0.2-1.3); BLOOD UREA NITROGEN 12 mg/dl (7-20); CALCIUM 9.2 mg/dl (8.4-10.2); CARBON DIOXIDE 25 mmol/L (21-31); CHLORIDE 106 mmol/L (97-110); CREATININE 0.76 mg/dl (0.61-1.24); GLUCOSE 109 mg/dl (70-220); LIPASE 122 U/L (23-300); POTASSIUM 3.9 mmol/L (3.5-5.1); SODIUM 148 mmol/L (135-144); TOTAL PROTEIN 8.7 g/dl (6.1-8.1)
[2018-05-29 11:47] LABS: INR 1.14; PROTIME 14.8 Sec (11.9-14.9); PT RATIO 1.2
[2018-05-29 11:48] LABS: PARTIAL THROMBOPLASTIN TIME 31.5 Sec (25.0-35.0)
[2018-05-29 11:57] LABS: TROPONIN-I < 0.010 ng/ml (0.000-0.120)
[2018-05-29] MEDS: SOD CHLORIDE 0.9% 1,000 ML IV (12:16)
[2018-05-29] MEDS: LORAZEPAM 2 MG INJ IV (12:16)
[2018-05-29] MEDS: HYDROmorphONE 0.5 MG/0.5 ML SYG IV (14:32)
[2018-05-29] MEDS ORDERED: ZOLPIDEM 5 MG TAB PO (17:30)
[2018-05-29] MEDS: LORAZEPAM 0.5 MG TAB PO (18:50)
[2018-05-29] MEDS: PANTOPRAZOLE (EC) 40 MG TAB PO (18:50)
[2018-05-29] MEDS: DILTIAZEM 25 MG INJ IV (18:51)
[2018-05-29] MEDS: morphine 4 MG/ML VIAL IV (19:59)
[2018-05-29] MEDS: SUCRALFATE 1 GM TAB PO (20:17)
[2018-05-29] MEDS: METOPROLOL 100 MG TAB PO (20:17)
[2018-05-29] MEDS: APIXABAN 5 MG TABLET PO (20:17)
[2018-05-30] MEDS: ONDANSETRON 4 MG INJ IV (01:18)
[2018-05-30] MEDS: LORAZEPAM 0.5 MG TAB PO ×3 (01:34→20:23)
[2018-05-30] MEDS: DILTIAZEM 25 MG INJ IV (04:03)
[2018-05-30] MEDS: PANTOPRAZOLE (EC) 40 MG TAB PO ×2 (06:02→17:51)
[2018-05-30] MEDS ORDERED: D5W-0.45 NACL + KCL 20 MEQ 1,000 ML IV (08:00)
[2018-05-30 08:05] LABS: ADD MAN DIFF? NO
[2018-05-30 08:09] LABS: WHITE BLOOD COUNT 3.6 10^3/ul (4.8-10.8)
[2018-05-30 08:09] LABS: ABNORMAL IP MESSAGE 1; BASOPHILS % 0.3 % (0.0-2.0); LYMPHOCYTES # 0.3 10^3/ul (0.8-2.9); LYMPHOCYTES % 9.3 % (15.0-51.0); MEAN CORPUSCULAR HEMOGLOBIN 28.2 pg (29.0-33.0); MEAN CORPUSCULAR HGB CONC 31.8 g/dl (32.0-37.0); MEAN CORPUSCULAR VOLUME 88.7 fl (82.0-101.0); MEAN PLATELET VOLUME 10.4 fl (7.4-10.4); MONOCYTE # 0.4 10^3/ul (0.3-0.9); MONOCYTES % 11.5 % (0.0-11.0); NEUTROPHIL # 2.8 10^3/ul (1.6-7.5); NEUTROPHILS % 78.6 % (39.0-77.0); PLATELET COUNT 114 10^3/UL (140-415); POSITIVE DIFF @See below; RED BLOOD COUNT 4.96 10^6/ul (4.70-6.10); RED CELL DISTRIBUTION WIDTH 15.7 % (11.5-14.5)
[2018-05-30 08:30] LABS: ANION GAP 13 (8-16); BLOOD UREA NITROGEN 12 mg/dl (7-20); CALCIUM 8.4 mg/dl (8.4-10.2); CARBON DIOXIDE 28 mmol/L (21-31); CHLORIDE 104 mmol/L (97-110); CREATININE 0.61 mg/dl (0.61-1.24); GLUCOSE 99 mg/dl (70-220); POTASSIUM 3.8 mmol/L (3.5-5.1); SODIUM 141 mmol/L (135-144)
[2018-05-30 08:41] LABS: TROPONIN-I < 0.010 ng/ml (0.000-0.120)
[2018-05-30] MEDS: SUCRALFATE 1 GM TAB PO ×2 (08:46→20:25)
[2018-05-30] MEDS: DILTIAZEM (CD) 240 MG CAP PO ×2 (08:47→20:23)
[2018-05-30] MEDS: APIXABAN 5 MG TABLET PO ×2 (08:47→20:21)
[2018-05-30] MEDS: ASPIRIN 81 MG TAB PO (08:47)
[2018-05-30] MEDS: METOPROLOL 100 MG TAB PO ×2 (08:48→20:23)
[2018-05-30] MEDS ORDERED: DILTIAZEM (CD) 180 MG CAP PO (09:00)
[2018-05-30] MEDS: ATORVASTATIN 20 MG TAB PO (20:23)
[2018-05-31] MEDS: PANTOPRAZOLE (EC) 40 MG TAB PO ×2 (05:44→17:22)
[2018-05-31 07:16] LABS: ADD MAN DIFF? NO
[2018-05-31 07:18] LABS: ABNORMAL IP MESSAGE 1; BASOPHILS % 0.3 % (0.0-2.0); HEMATOCRIT 44.7 % (42.0-52.0); HEMOGLOBIN 14.5 g/dl (14.0-18.0); LYMPHOCYTES # 0.3 10^3/ul (0.8-2.9); LYMPHOCYTES % 9.7 % (15.0-51.0); MEAN CORPUSCULAR HEMOGLOBIN 28.9 pg (29.0-33.0); MEAN CORPUSCULAR HGB CONC 32.4 g/dl (32.0-37.0); MEAN CORPUSCULAR VOLUME 89.2 fl (82.0-101.0); MEAN PLATELET VOLUME 10.9 fl (7.4-10.4); MONOCYTE # 0.3 10^3/ul (0.3-0.9); MONOCYTES % 9.7 % (0.0-11.0); NEUTROPHIL # 2.8 10^3/ul (1.6-7.5); PLATELET COUNT 91 10^3/UL (140-415); POSITIVE DIFF @See below; RED BLOOD COUNT 5.01 10^6/ul (4.70-6.10); RED CELL DISTRIBUTION WIDTH 15.4 % (11.5-14.5)
[2018-05-31 07:18] LABS: WHITE BLOOD COUNT 3.5 10^3/ul (4.8-10.8)
[2018-05-31 07:50] LABS: ANION GAP 12 (8-16); BLOOD UREA NITROGEN 13 mg/dl (7-20); CALCIUM 8.7 mg/dl (8.4-10.2); CARBON DIOXIDE 29 mmol/L (21-31); CHLORIDE 102 mmol/L (97-110); CREATININE 0.63 mg/dl (0.61-1.24); GLUCOSE 84 mg/dl (70-220); MAGNESIUM 1.8 mg/dl (1.7-2.5); POTASSIUM 3.8 mmol/L (3.5-5.1); SODIUM 139 mmol/L (135-144)
[2018-05-31] MEDS: APIXABAN 5 MG TABLET PO ×2 (08:32→20:18)
[2018-05-31] MEDS: METOPROLOL 100 MG TAB PO ×2 (08:33→20:18)
[2018-05-31] MEDS: ASPIRIN 81 MG TAB PO (08:33)
[2018-05-31] MEDS: SUCRALFATE 1 GM TAB PO ×2 (08:33→20:18)
[2018-05-31] MEDS: DILTIAZEM (CD) 240 MG CAP PO ×2 (08:34→20:18)
[2018-05-31] MEDS: CHLORDIAZEPOXIDE/CLIDINIUM CAP PO ×2 (14:11→22:05)
[2018-05-31] MEDS: ATORVASTATIN 20 MG TAB PO (20:18)
[2018-06-01] MEDS: PANTOPRAZOLE (EC) 40 MG TAB PO ×2 (06:09→17:33)
[2018-06-01] MEDS: CHLORDIAZEPOXIDE/CLIDINIUM CAP PO ×2 (09:15→20:39)
[2018-06-01] MEDS: SUCRALFATE 1 GM TAB PO ×2 (09:15→20:39)
[2018-06-01] MEDS: ASPIRIN 81 MG TAB PO (09:15)
[2018-06-01] MEDS: DILTIAZEM (CD) 240 MG CAP PO ×2 (09:16→21:37)
[2018-06-01] MEDS: METOPROLOL 100 MG TAB PO ×2 (09:16→21:37)
[2018-06-01] MEDS: APIXABAN 5 MG TABLET PO ×2 (09:17→20:39)
[2018-06-01] MEDS: ONDANSETRON 4 MG INJ IV ×2 (16:43→20:51)
[2018-06-01] MEDS: morphine 4 MG/ML VIAL IV (20:39)
[2018-06-01] MEDS: ATORVASTATIN 20 MG TAB PO (20:39)
[2018-06-02] MEDS: PANTOPRAZOLE (EC) 40 MG TAB PO ×2 (05:45→17:50)
[2018-06-02] MEDS: SUCRALFATE 1 GM TAB PO ×2 (09:06→21:12)
[2018-06-02] MEDS: CHLORDIAZEPOXIDE/CLIDINIUM CAP PO ×2 (09:06→21:12)
[2018-06-02] MEDS: APIXABAN 5 MG TABLET PO ×2 (09:06→21:12)
[2018-06-02] MEDS: ASPIRIN 81 MG TAB PO (09:07)
[2018-06-02] MEDS: DILTIAZEM (CD) 240 MG CAP PO ×2 (09:08→21:12)
[2018-06-02] MEDS: METOPROLOL 100 MG TAB PO ×2 (09:09→21:13)
[2018-06-02] MEDS: MAGNESIUM HYDROXIDE 30ML CUP PO (13:41)
[2018-06-02] MEDS: ATORVASTATIN 20 MG TAB PO (21:11)
[2018-06-03] MEDS: PANTOPRAZOLE (EC) 40 MG TAB PO (06:31)
[2018-06-03] MEDS: DILTIAZEM (CD) 240 MG CAP PO (09:06)
[2018-06-03] MEDS: METOPROLOL 100 MG TAB PO (09:06)
[2018-06-03] MEDS: CHLORDIAZEPOXIDE/CLIDINIUM CAP PO (09:06)
[2018-06-03] MEDS: ASPIRIN 81 MG TAB PO (09:06)
[2018-06-03] MEDS: SUCRALFATE 1 GM TAB PO (09:06)
[2018-06-03] MEDS: APIXABAN 5 MG TABLET PO (09:06)
[2018-06-03 09:44] LABS: ADD MAN DIFF? NO
[2018-06-03 09:50] LABS: WHITE BLOOD COUNT 3.6 10^3/ul (4.8-10.8)
[2018-06-03 09:50] LABS: ABNORMAL IP MESSAGE 1; BASOPHILS % 0.3 % (0.0-2.0); HEMATOCRIT 41.7 % (42.0-52.0); HEMOGLOBIN 13.3 g/dl (14.0-18.0); LYMPHOCYTES # 0.4 10^3/ul (0.8-2.9); LYMPHOCYTES % 11.1 % (15.0-51.0); MEAN CORPUSCULAR HEMOGLOBIN 28.7 pg (29.0-33.0); MEAN CORPUSCULAR HGB CONC 31.9 g/dl (32.0-37.0); MEAN CORPUSCULAR VOLUME 89.9 fl (82.0-101.0); MEAN PLATELET VOLUME 11.6 fl (7.4-10.4); MONOCYTE # 0.6 10^3/ul (0.3-0.9); MONOCYTES % 16.9 % (0.0-11.0); NEUTROPHIL # 2.6 10^3/ul (1.6-7.5); NEUTROPHILS % 71.4 % (39.0-77.0); PLATELET COUNT 105 10^3/UL (140-415); POSITIVE DIFF @See below; RED BLOOD COUNT 4.64 10^6/ul (4.70-6.10); RED CELL DISTRIBUTION WIDTH 16.1 % (11.5-14.5)
[2018-06-03 10:10] LABS: ANION GAP 10 (8-16); BLOOD UREA NITROGEN 13 mg/dl (7-20); CALCIUM 8.4 mg/dl (8.4-10.2); CARBON DIOXIDE 32 mmol/L (21-31); CHLORIDE 102 mmol/L (97-110); CREATININE 0.79 mg/dl (0.61-1.24); GLUCOSE 84 mg/dl (70-220); MAGNESIUM 2.1 mg/dl (1.7-2.5); POTASSIUM 3.8 mmol/L (3.5-5.1); SODIUM 140 mmol/L (135-144)
== END 2018-06-03 15:12 | disposition home or self-care (01) | DRG 392 ==
LOC: E/R 10:48 → TEL 13:01
DX: K58.9 Irritable bowel syndrome, unspecified (principal); I42.1 Obstructive hypertrophic cardiomyopathy; I48.2 Chronic atrial fibrillation; K57.90 Diverticulosis of intestine, part unspecified, without perforation or abscess without bleeding; K80.20 Calculus of gallbladder without cholecystitis without obstruction; K29.70 Gastritis, unspecified, without bleeding; K21.9 Gastro-esophageal reflux disease without esophagitis; D72.819 Decreased white blood cell count, unspecified; D69.6 Thrombocytopenia, unspecified; E78.5 Hyperlipidemia, unspecified; F41.9 Anxiety disorder, unspecified; F32.9 Major depressive disorder, single episode, unspecified; I25.10 Atherosclerotic heart disease of native coronary artery without angina pectoris; I10 Essential (primary) hypertension; Z95.5 Presence of coronary angioplasty implant and graft; Z86.73 Personal history of transient ischemic attack (TIA), and cerebral infarction without residual deficits; Z87.891 Personal history of nicotine dependence; Z79.01 Long term (current) use of anticoagulants; Z79.82 Long term (current) use of aspirin
CPT/HCPCS: 36415; 71045; 74176; 80048; 80053; 83690; 83735; 84484; 85025; 85610; 85730; 93005; 93306; 96374; 96375; 99217; 99285-25

== ENCOUNTER 2018-07-21 16:45 | Emergency (ER) | payer MEDICARE, BC ==
[2018-07-21 21:09] LABS: ABNORMAL IP MESSAGE 1; HEMATOCRIT 46.5 % (42.0-52.0); HEMOGLOBIN 14.7 g/dl (14.0-18.0); MEAN CORPUSCULAR HGB CONC 31.6 g/dl (32.0-37.0); MEAN CORPUSCULAR VOLUME 88.6 fl (82.0-101.0); MEAN PLATELET VOLUME 10.7 fl (7.4-10.4); PLATELET COUNT 190 10^3/UL (140-415); POSITIVE DIFF @See below; RED BLOOD COUNT 5.25 10^6/ul (4.70-6.10); RED CELL DISTRIBUTION WIDTH 15.6 % (11.5-14.5)
[2018-07-21 21:14] LABS: ADD MAN DIFF? YES
[2018-07-21 21:23] LABS: ALANINE AMINOTRANSFERASE 20 IU/L (13-69); ALBUMIN 3.8 g/dl (3.3-4.9); ALBUMIN/GLOBULIN RATIO 0.82; ALKALINE PHOSPHATASE 86 IU/L (42-121); ANION GAP 15 (8-16); ASPARTATE AMINO TRANSFERASE 51 IU/L (15-46); BILIRUBIN,INDIRECT 1.8 mg/dl (0-1.1); BILIRUBIN,TOTAL 1.8 mg/dl (0.2-1.3); BLOOD UREA NITROGEN 11 mg/dl (7-20); CALCIUM 9.4 mg/dl (8.4-10.2); CARBON DIOXIDE 30 mmol/L (21-31); CHLORIDE 102 mmol/L (97-110); CREATININE 0.75 mg/dl (0.61-1.24); GLUCOSE 93 mg/dl (70-220); LIPASE 96 U/L (23-300); POTASSIUM 3.7 mmol/L (3.5-5.1); SODIUM 143 mmol/L (135-144); TOTAL PROTEIN 8.4 g/dl (6.1-8.1)
[2018-07-21 21:34] LABS: TROPONIN-I < 0.012 ng/ml (0.000-0.120)
[2018-07-21 21:36] LABS: ADD UMIC YES; UR ASCORBIC ACID NEGATIVE (NEGATIVE); UR BILIRUBIN (Dip) 1+ mg/dL (NEGATIVE); UR BLOOD (Dip) NEGATIVE (NEGATIVE); UR CLARITY CLEAR (CLEAR); UR COLOR AMBER (YELLOW); UR GLUCOSE (Dip) NEGATIVE (NEGATIVE); UR KETONES (Dip) NEGATIVE (NEGATIVE); UR LEUKOCYTE ESTERASE (Dip) NEGATIVE Leu/ul (NEGATIVE); UR MUCUS FEW /HPF (NONE SEEN); UR NITRITE (Dip) NEGATIVE (NEGATIVE); UR RBC 1 /HPF (0-5); UR SPECIFIC GRAVITY (Dip) 1.021 (1.003-1.030); UR TOTAL PROTEIN (Dip) 1+ mg/dl (NEGATIVE); UR UROBILINOGEN (Dip) 2+ mg/dL (NEGATIVE); UR WBC 1 /HPF (0-5)
[2018-07-21 21:57] LABS: BAND NEUTROPHILS #M 0.1 10^3/ul (0.0-0.6); BAND NEUTROPHILS % (M) 3 % (0-4); LYMPHOCYTES #M 0.4 10^3/ul (0.8-2.9); LYMPHOCYTES % (M) 12 % (15-51); METAMYELOCYTES %M 1 % (0-0); MONOCYTE #M 0.3 10^3/ul (0.3-0.9); MONOCYTES % (M) 8 % (0-11); PLATELET ESTIMATE NORMAL; POIKILOCYTOSIS 1+ (0-0); POLYCHROMASIA 1+ (0-0); SEGMENTED NEUTROPHILS (M) % 76 % (39-77); SMUDGE%M 20 % (0-0)
== END 2018-07-21 22:45 | disposition home or self-care (01) ==
LOC: E/R 16:45
DX: R14.0 Abdominal distension (gaseous) (principal); I10 Essential (primary) hypertension; I25.10 Atherosclerotic heart disease of native coronary artery without angina pectoris; Z79.82 Long term (current) use of aspirin; Z98.61 Coronary angioplasty status
CPT/HCPCS: 36415; 71045; 80053; 81001; 83690; 84484; 85025; 99284-25

== ENCOUNTER → 2018-07-24 | Outpatient (CLI) | payer MEDICARE, BC ==
[2018-07-24 13:52] LABS: ADD MAN DIFF? NO
[2018-07-24 13:53] LABS: ABNORMAL IP MESSAGE 1; BASOPHILS % 0.5 % (0.0-2.0); HEMATOCRIT 47.8 % (42.0-52.0); HEMOGLOBIN 14.8 g/dl (14.0-18.0); LYMPHOCYTES # 0.4 10^3/ul (0.8-2.9); LYMPHOCYTES % 9.8 % (15.0-51.0); MEAN CORPUSCULAR HEMOGLOBIN 28.1 pg (29.0-33.0); MEAN CORPUSCULAR VOLUME 90.7 fl (82.0-101.0); MEAN PLATELET VOLUME 10.8 fl (7.4-10.4); MONOCYTE # 0.4 10^3/ul (0.3-0.9); MONOCYTES % 10.5 % (0.0-11.0); NEUTROPHIL # 3.2 10^3/ul (1.6-7.5); PLATELET COUNT 143 10^3/UL (140-415); POSITIVE DIFF @See below; RED BLOOD COUNT 5.27 10^6/ul (4.70-6.10); RED CELL DISTRIBUTION WIDTH 15.7 % (11.5-14.5)
[2018-07-24 13:53] LABS: WHITE BLOOD COUNT 4.1 10^3/ul (4.8-10.8)
[2018-07-24 14:12] LABS: PROTIME 18.4 Sec (11.9-14.9); PT RATIO 1.4
[2018-07-24 14:15] LABS: ANION GAP 14 (8-16); BLOOD UREA NITROGEN 9 mg/dl (7-20); CALCIUM 9.1 mg/dl (8.4-10.2); CARBON DIOXIDE 24 mmol/L (21-31); CHLORIDE 107 mmol/L (97-110); CREATININE 0.66 mg/dl (0.61-1.24); GLUCOSE 107 mg/dl (70-220); SODIUM 141 mmol/L (135-144)
== END | disposition home or self-care (01) ==
LOC: PUL 11:28
DX: R06.00 Dyspnea, unspecified (principal); I48.1 Persistent atrial fibrillation; R01.1 Cardiac murmur, unspecified; I35.0 Nonrheumatic aortic (valve) stenosis; I25.10 Atherosclerotic heart disease of native coronary artery without angina pectoris; I10 Essential (primary) hypertension; E78.5 Hyperlipidemia, unspecified; I42.1 Obstructive hypertrophic cardiomyopathy
CPT/HCPCS: 80048; 85025; 85610; 94060; 94664; 94726; 94729

== ENCOUNTER 2018-08-03 14:57 | Inpatient (IN) | payer MEDICARE, BC ==
[2018-08-03] MEDS: ONDANSETRON 4 MG INJ IV (15:51)
[2018-08-03] MEDS: morphine 4 MG/ML VIAL IV (15:51)
[2018-08-03 15:57] LABS: ADD MAN DIFF? NO
[2018-08-03 15:58] LABS: ABNORMAL IP MESSAGE 1; BASOPHILS % 0.6 % (0.0-2.0); HEMATOCRIT 44.7 % (42.0-52.0); HEMOGLOBIN 14.5 g/dl (14.0-18.0); LYMPHOCYTES # 0.4 10^3/ul (0.8-2.9); LYMPHOCYTES % 10.6 % (15.0-51.0); MEAN CORPUSCULAR HEMOGLOBIN 28.4 pg (29.0-33.0); MEAN CORPUSCULAR HGB CONC 32.4 g/dl (32.0-37.0); MEAN CORPUSCULAR VOLUME 87.6 fl (82.0-101.0); MEAN PLATELET VOLUME 11.4 fl (7.4-10.4); MONOCYTE # 0.4 10^3/ul (0.3-0.9); MONOCYTES % 11.5 % (0.0-11.0); NEUTROPHIL # 2.5 10^3/ul (1.6-7.5); NEUTROPHILS % 76.7 % (39.0-77.0); PLATELET COUNT 167 10^3/UL (140-415); POSITIVE DIFF @See below; RED CELL DISTRIBUTION WIDTH 16.6 % (11.5-14.5)
[2018-08-03 15:58] LABS: WHITE BLOOD COUNT 3.3 10^3/ul (4.8-10.8)
[2018-08-03 16:21] LABS: INR 1.33; PROTIME 16.7 Sec (11.9-14.9); PT RATIO 1.3
[2018-08-03 16:22] LABS: PARTIAL THROMBOPLASTIN TIME 34.2 Sec (23.0-35.0)
[2018-08-03 16:23] LABS: ALANINE AMINOTRANSFERASE 30 IU/L (13-69); ALBUMIN 3.2 g/dl (3.3-4.9); ALKALINE PHOSPHATASE 81 IU/L (42-121); ANION GAP 9 (5-13); ASPARTATE AMINO TRANSFERASE 48 IU/L (15-46); BILIRUBIN,INDIRECT 1.5 mg/dl (0-1.1); BILIRUBIN,TOTAL 1.5 mg/dl (0.2-1.3); BLOOD UREA NITROGEN 7 mg/dl (7-20); CALCIUM 8.9 mg/dl (8.4-10.2); CARBON DIOXIDE 25 mmol/L (21-31); CHLORIDE 106 mmol/L (97-110); GLUCOSE 98 mg/dl (70-220); POTASSIUM 3.6 mmol/L (3.5-5.1); SODIUM 140 mmol/L (135-144); TOTAL PROTEIN 7.2 g/dl (6.1-8.1)
[2018-08-03 16:35] LABS: B-TYPE NATRIURETIC PEPTIDE 2910 PG/ML (0-450); TROPONIN-I < 0.012 ng/ml (0.000-0.120)
[2018-08-03] MEDS ORDERED: ACETAMINOPHEN 325 MG TAB PO (17:30)
[2018-08-03] MEDS ORDERED: ONDANSETRON 4 MG INJ IV (17:30)
[2018-08-03] MEDS ORDERED: LORAZEPAM 0.5 MG TAB PO (20:00)
[2018-08-03] MEDS ORDERED: ZOLPIDEM 5 MG TAB PO (20:00)
[2018-08-03] MEDS ORDERED: BUSPIRONE 5 MG TAB PO (21:00)
[2018-08-03] MEDS: APIXABAN 5 MG TABLET PO (21:15)
[2018-08-03] MEDS: ATORVASTATIN 20 MG TAB PO (21:15)
[2018-08-03] MEDS: BUSPIRONE 10 MG TAB PO (21:15)
[2018-08-03] MEDS: SUCRALFATE 1 GM TAB PO (21:15)
[2018-08-03] MEDS: METOPROLOL 100 MG TAB PO (21:16)
[2018-08-04] MEDS: PANTOPRAZOLE (EC) 40 MG TAB PO (05:33)
[2018-08-04 05:49] LABS: ADD MAN DIFF? NO
[2018-08-04 05:56] LABS: WHITE BLOOD COUNT 3.6 10^3/ul (4.8-10.8)
[2018-08-04 05:56] LABS: ABNORMAL IP MESSAGE 1; BASOPHILS % 0.6 % (0.0-2.0); HEMATOCRIT 42.9 % (42.0-52.0); HEMOGLOBIN 13.6 g/dl (14.0-18.0); LYMPHOCYTES # 0.4 10^3/ul (0.8-2.9); LYMPHOCYTES % 10.2 % (15.0-51.0); MEAN CORPUSCULAR HEMOGLOBIN 28.3 pg (29.0-33.0); MEAN CORPUSCULAR HGB CONC 31.7 g/dl (32.0-37.0); MEAN CORPUSCULAR VOLUME 89.4 fl (82.0-101.0); MEAN PLATELET VOLUME 10.6 fl (7.4-10.4); MONOCYTE # 0.6 10^3/ul (0.3-0.9); MONOCYTES % 15.5 % (0.0-11.0); NEUTROPHIL # 2.7 10^3/ul (1.6-7.5); NEUTROPHILS % 73.4 % (39.0-77.0); PLATELET COUNT 133 10^3/UL (140-415); POSITIVE DIFF @See below; RED CELL DISTRIBUTION WIDTH 16.3 % (11.5-14.5)
[2018-08-04 06:27] LABS: TROPONIN-I < 0.012 ng/ml (0.000-0.120)
[2018-08-04 06:31] LABS: ALANINE AMINOTRANSFERASE 28 IU/L (13-69); ALBUMIN 3.1 g/dl (3.3-4.9); ALBUMIN/GLOBULIN RATIO 0.81; ALKALINE PHOSPHATASE 76 IU/L (42-121); ANION GAP 8 (5-13); ASPARTATE AMINO TRANSFERASE 44 IU/L (15-46); BILIRUBIN,INDIRECT 2.1 mg/dl (0-1.1); BILIRUBIN,TOTAL 2.1 mg/dl (0.2-1.3); BLOOD UREA NITROGEN 11 mg/dl (7-20); CALCIUM 8.8 mg/dl (8.4-10.2); CARBON DIOXIDE 31 mmol/L (21-31); CHLORIDE 102 mmol/L (97-110); CREATININE 0.84 mg/dl (0.61-1.24); GLUCOSE 102 mg/dl (70-220); SODIUM 141 mmol/L (135-144); TOTAL PROTEIN 6.9 g/dl (6.1-8.1)
[2018-08-04 06:32] LABS: T4 (THYROXINE) 8.9 ug/dl (5.5-11.0)
[2018-08-04] MEDS: ASPIRIN 81 MG TAB PO (08:58)
[2018-08-04] MEDS: METOPROLOL 100 MG TAB PO ×2 (08:58→20:53)
[2018-08-04] MEDS: APIXABAN 5 MG TABLET PO ×2 (08:58→20:52)
[2018-08-04] MEDS: SUCRALFATE 1 GM TAB PO ×2 (08:58→20:52)
[2018-08-04] MEDS: BUSPIRONE 10 MG TAB PO ×2 (08:59→20:53)
[2018-08-04] MEDS: morphine 4 MG/ML VIAL IV ×2 (09:37→15:43)
[2018-08-04] MEDS: ATORVASTATIN 20 MG TAB PO (20:52)
[2018-08-04] MEDS: AL HYDROX/MG HYDROX/SIMETH 30 ML CUP PO (20:53)
[2018-08-05] MEDS: PANTOPRAZOLE (EC) 40 MG TAB PO (05:58)
[2018-08-05 06:08] LABS: ADD MAN DIFF? NO
[2018-08-05 06:11] LABS: ABNORMAL IP MESSAGE 1; BASOPHILS % 0.3 % (0.0-2.0); EOSINOPHILS % 0.3 % (0.0-7.0); HEMATOCRIT 42.9 % (42.0-52.0); HEMOGLOBIN 13.6 g/dl (14.0-18.0); LYMPHOCYTES # 0.4 10^3/ul (0.8-2.9); LYMPHOCYTES % 11.1 % (15.0-51.0); MEAN CORPUSCULAR HEMOGLOBIN 28.5 pg (29.0-33.0); MEAN CORPUSCULAR HGB CONC 31.7 g/dl (32.0-37.0); MEAN CORPUSCULAR VOLUME 89.9 fl (82.0-101.0); MEAN PLATELET VOLUME 10.5 fl (7.4-10.4); MONOCYTE # 0.5 10^3/ul (0.3-0.9); MONOCYTES % 15.4 % (0.0-11.0); NEUTROPHIL # 2.4 10^3/ul (1.6-7.5); NEUTROPHILS % 72.6 % (39.0-77.0); PLATELET COUNT 126 10^3/UL (140-415); RED BLOOD COUNT 4.77 10^6/ul (4.70-6.10); RED CELL DISTRIBUTION WIDTH 16.2 % (11.5-14.5)
[2018-08-05 06:11] LABS: WHITE BLOOD COUNT 3.2 10^3/ul (4.8-10.8)
[2018-08-05 06:39] LABS: ANION GAP 6 (5-13); BLOOD UREA NITROGEN 13 mg/dl (7-20); CALCIUM 8.7 mg/dl (8.4-10.2); CARBON DIOXIDE 31 mmol/L (21-31); CHLORIDE 103 mmol/L (97-110); CREATININE 0.77 mg/dl (0.61-1.24); GLUCOSE 99 mg/dl (70-220); MAGNESIUM 1.9 mg/dl (1.7-2.5); POTASSIUM 4.1 mmol/L (3.5-5.1); SODIUM 140 mmol/L (135-144)
[2018-08-05] MEDS: AL HYDROX/MG HYDROX/SIMETH 30 ML CUP PO (08:21)
[2018-08-05] MEDS: ASPIRIN 81 MG TAB PO (08:23)
[2018-08-05] MEDS: METOPROLOL 100 MG TAB PO ×2 (08:23→21:11)
[2018-08-05] MEDS: SUCRALFATE 1 GM TAB PO ×2 (08:23→21:11)
[2018-08-05] MEDS: APIXABAN 5 MG TABLET PO ×2 (08:23→21:11)
[2018-08-05] MEDS: BUSPIRONE 10 MG TAB PO ×2 (08:24→21:11)
[2018-08-05] MEDS: DILTIAZEM (CD) 180 MG CAP PO (08:24)
[2018-08-05] MEDS: DICYCLOMINE 10 MG CAP PO (18:47)
[2018-08-05] MEDS: ATORVASTATIN 20 MG TAB PO (21:11)
[2018-08-06 06:29] LABS: ADD MAN DIFF? NO
[2018-08-06 06:41] LABS: ABNORMAL IP MESSAGE 1; BASOPHILS % 0.3 % (0.0-2.0); EOSINOPHILS % 0.3 % (0.0-7.0); HEMATOCRIT 40.9 % (42.0-52.0); HEMOGLOBIN 12.9 g/dl (14.0-18.0); LYMPHOCYTES # 0.4 10^3/ul (0.8-2.9); MEAN CORPUSCULAR HEMOGLOBIN 28.4 pg (29.0-33.0); MEAN CORPUSCULAR HGB CONC 31.5 g/dl (32.0-37.0); MEAN CORPUSCULAR VOLUME 89.9 fl (82.0-101.0); MEAN PLATELET VOLUME 10.8 fl (7.4-10.4); MONOCYTE # 0.5 10^3/ul (0.3-0.9); NEUTROPHIL # 2.1 10^3/ul (1.6-7.5); NEUTROPHILS % 69.1 % (39.0-77.0); PLATELET COUNT 122 10^3/UL (140-415); POSITIVE DIFF @See below; RED BLOOD COUNT 4.55 10^6/ul (4.70-6.10); RED CELL DISTRIBUTION WIDTH 16.6 % (11.5-14.5)
[2018-08-06] MEDS: PANTOPRAZOLE (EC) 40 MG TAB PO (06:42)
[2018-08-06 07:13] LABS: ALANINE AMINOTRANSFERASE 24 IU/L (13-69); ALBUMIN 3.3 g/dl (3.3-4.9); ALBUMIN/GLOBULIN RATIO 0.91; ALKALINE PHOSPHATASE 63 IU/L (42-121); ANION GAP 8 (5-13); ASPARTATE AMINO TRANSFERASE 51 IU/L (15-46); BILIRUBIN,INDIRECT 1.7 mg/dl (0-1.1); BILIRUBIN,TOTAL 1.7 mg/dl (0.2-1.3); BLOOD UREA NITROGEN 10 mg/dl (7-20); CALCIUM 8.2 mg/dl (8.4-10.2); CARBON DIOXIDE 29 mmol/L (21-31); CHLORIDE 103 mmol/L (97-110); CREATININE 0.72 mg/dl (0.61-1.24); GLUCOSE 104 mg/dl (70-220); MAGNESIUM 2.1 mg/dl (1.7-2.5); POTASSIUM 3.9 mmol/L (3.5-5.1); SODIUM 140 mmol/L (135-144); TOTAL PROTEIN 6.9 g/dl (6.1-8.1)
[2018-08-06] MEDS: DICYCLOMINE 10 MG CAP PO (08:15)
[2018-08-06] MEDS: DILTIAZEM (CD) 180 MG CAP PO (08:16)
[2018-08-06] MEDS: METOPROLOL 100 MG TAB PO (08:16)
[2018-08-06] MEDS: APIXABAN 5 MG TABLET PO (08:17)
[2018-08-06] MEDS: SUCRALFATE 1 GM TAB PO (08:17)
[2018-08-06] MEDS: BUSPIRONE 10 MG TAB PO (08:17)
[2018-08-06] MEDS: ASPIRIN 81 MG TAB PO (08:17)
[2018-08-06 08:35] LABS: AMYLASE 54 U/L (11-123)
[2018-08-06 08:35] LABS: LIPASE 58 U/L (23-300)
[2018-08-06] MEDS: AL HYDROX/MG HYDROX/SIMETH 30 ML CUP PO (12:16)
== END 2018-08-06 15:13 | disposition home or self-care (01) | DRG 392 ==
LOC: E/R 14:57 → TEL 17:26
PROVIDERS: Internal Medicine
DX: K21.9 Gastro-esophageal reflux disease without esophagitis (principal); I42.1 Obstructive hypertrophic cardiomyopathy; D61.818 Other pancytopenia; I35.0 Nonrheumatic aortic (valve) stenosis; K80.20 Calculus of gallbladder without cholecystitis without obstruction; I48.2 Chronic atrial fibrillation; E78.5 Hyperlipidemia, unspecified; I25.10 Atherosclerotic heart disease of native coronary artery without angina pectoris; I10 Essential (primary) hypertension; I48.0 Paroxysmal atrial fibrillation; I25.2 Old myocardial infarction; Z77.090 Contact with and (suspected) exposure to asbestos; Z95.5 Presence of coronary angioplasty implant and graft; Z79.01 Long term (current) use of anticoagulants; Z86.73 Personal history of transient ischemic attack (TIA), and cerebral infarction without residual deficits; Z79.82 Long term (current) use of aspirin
CPT/HCPCS: 36415; 71045; 80048; 80053; 82150; 83690; 83735; 83880; 84436; 84443; 84484; 85025; 85610; 85730; 93005; 93306; 96374; 96375; 99285-25

== ENCOUNTER 2018-08-24 11:44 | Inpatient (IN) | payer MEDICARE, BC ==
[2018-08-24 12:15] LABS: ADD MAN DIFF? NO
[2018-08-24] MEDS: DILTIAZEM 25 MG INJ IV ×2 (12:18→12:42)
[2018-08-24 12:19] LABS: ABNORMAL IP MESSAGE 1; BASOPHILS % 0.7 % (0.0-2.0); HEMOGLOBIN 15.1 g/dl (14.0-18.0); LYMPHOCYTES # 0.5 10^3/ul (0.8-2.9); LYMPHOCYTES % 11.8 % (15.0-51.0); MEAN CORPUSCULAR HEMOGLOBIN 28.1 pg (29.0-33.0); MEAN CORPUSCULAR HGB CONC 32.1 g/dl (32.0-37.0); MEAN CORPUSCULAR VOLUME 87.4 fl (82.0-101.0); MEAN PLATELET VOLUME 10.1 fl (7.4-10.4); MONOCYTE # 0.5 10^3/ul (0.3-0.9); MONOCYTES % 11.3 % (0.0-11.0); NEUTROPHIL # 3.1 10^3/ul (1.6-7.5); NEUTROPHILS % 75.7 % (39.0-77.0); PLATELET COUNT 209 10^3/UL (140-415); POSITIVE DIFF @See below; RED BLOOD COUNT 5.38 10^6/ul (4.70-6.10); RED CELL DISTRIBUTION WIDTH 16.1 % (11.5-14.5)
[2018-08-24 12:19] LABS: WHITE BLOOD COUNT 4.1 10^3/ul (4.8-10.8)
[2018-08-24 12:41] LABS: ANION GAP 12 (5-13); BLOOD UREA NITROGEN 10 mg/dl (7-20); CALCIUM 9.2 mg/dl (8.4-10.2); CARBON DIOXIDE 25 mmol/L (21-31); CHLORIDE 105 mmol/L (97-110); CREATININE 0.71 mg/dl (0.61-1.24); GLUCOSE 115 mg/dl (70-220); POTASSIUM 4.1 mmol/L (3.5-5.1); SODIUM 142 mmol/L (135-144)
[2018-08-24 14:08] LABS: TROPONIN-I < 0.012 ng/ml (0.000-0.120)
[2018-08-24] MEDS: DILTIAZEM-D5W 125MG/125ML DRIP 125 ML IV ×2 (14:59→17:21)
[2018-08-24] MEDS: AMIODARONE 150MG/D5W BOLUS 100 ML IV ×2 (17:02→21:15)
[2018-08-24 18:55] LABS: CREATINE KINASE 39 IU/L (23-200)
[2018-08-24] MEDS ORDERED: METOCLOPRAMIDE 5 MG TAB PO (19:00)
[2018-08-24 19:08] LABS: CK INDEX 3.1; CK-MB 1.22 ng/ml (0.0-2.4); TROPONIN-I < 0.012 ng/ml (0.000-0.120)
[2018-08-24] MEDS: morphine 4 MG/ML VIAL IV (19:57)
[2018-08-24] MEDS ORDERED: BUSPIRONE 5 MG TAB PO (21:00)
[2018-08-24] MEDS: SUCRALFATE 1 GM TAB PO (22:20)
[2018-08-24] MEDS: METOPROLOL 100 MG TAB PO (22:20)
[2018-08-24] MEDS: LORAZEPAM 0.5 MG TAB PO (22:56)
[2018-08-25] MEDS: DILTIAZEM-D5W 125MG/125ML DRIP 125 ML IV (00:09)
[2018-08-25 01:01] LABS: CREATINE KINASE 32 IU/L (23-200)
[2018-08-25 01:14] LABS: CK INDEX 4.3; CK-MB 1.37 ng/ml (0.0-2.4); TROPONIN-I < 0.012 ng/ml (0.000-0.120)
[2018-08-25 05:02] LABS: ADD MAN DIFF? NO
[2018-08-25 05:13] LABS: WHITE BLOOD COUNT 3.3 10^3/ul (4.8-10.8)
[2018-08-25 05:13] LABS: ABNORMAL IP MESSAGE 1; BASOPHILS % 0.6 % (0.0-2.0); HEMATOCRIT 42.2 % (42.0-52.0); HEMOGLOBIN 13.5 g/dl (14.0-18.0); LYMPHOCYTES # 0.4 10^3/ul (0.8-2.9); LYMPHOCYTES % 12.6 % (15.0-51.0); MEAN CORPUSCULAR HEMOGLOBIN 28.2 pg (29.0-33.0); MEAN CORPUSCULAR VOLUME 88.1 fl (82.0-101.0); MEAN PLATELET VOLUME 10.4 fl (7.4-10.4); MONOCYTE # 0.6 10^3/ul (0.3-0.9); MONOCYTES % 16.9 % (0.0-11.0); NEUTROPHIL # 2.3 10^3/ul (1.6-7.5); NEUTROPHILS % 69.9 % (39.0-77.0); PLATELET COUNT 182 10^3/UL (140-415); POSITIVE DIFF @See below; RED BLOOD COUNT 4.79 10^6/ul (4.70-6.10)
[2018-08-25 05:26] LABS: ANION GAP 5 (5-13); BLOOD UREA NITROGEN 14 mg/dl (7-20); CALCIUM 8.7 mg/dl (8.4-10.2); CARBON DIOXIDE 30 mmol/L (21-31); CHLORIDE 105 mmol/L (97-110); GLUCOSE 99 mg/dl (70-220); POTASSIUM 4.4 mmol/L (3.5-5.1); SODIUM 140 mmol/L (135-144)
[2018-08-25] MEDS: PANTOPRAZOLE (EC) 40 MG TAB PO (05:57)
[2018-08-25] MEDS: ASPIRIN (EC) 81 MG TAB PO (08:09)
[2018-08-25] MEDS: APIXABAN 5 MG TABLET PO ×2 (08:10→21:10)
[2018-08-25] MEDS: BUSPIRONE 10 MG TAB PO ×2 (08:11→22:05)
[2018-08-25] MEDS: METOPROLOL 100 MG TAB PO ×2 (08:11→21:10)
[2018-08-25] MEDS: SUCRALFATE 1 GM TAB PO ×2 (08:12→21:09)
[2018-08-25] MEDS: FUROSEMIDE 20 MG TAB PO (10:55)
[2018-08-25] MEDS: DILTIAZEM (CD) 180 MG CAP PO (10:55)
[2018-08-25] MEDS: ATORVASTATIN 20 MG TAB PO (21:09)
[2018-08-26] MEDS: PANTOPRAZOLE (EC) 40 MG TAB PO (05:52)
[2018-08-26 06:08] LABS: ADD MAN DIFF? NO
[2018-08-26 06:09] LABS: ABNORMAL IP MESSAGE 1; BASOPHILS % 0.6 % (0.0-2.0); HEMOGLOBIN 13.6 g/dl (14.0-18.0); LYMPHOCYTES # 0.3 10^3/ul (0.8-2.9); LYMPHOCYTES % 10.1 % (15.0-51.0); MEAN CORPUSCULAR HEMOGLOBIN 28.2 pg (29.0-33.0); MEAN CORPUSCULAR HGB CONC 31.6 g/dl (32.0-37.0); MEAN CORPUSCULAR VOLUME 89.2 fl (82.0-101.0); MEAN PLATELET VOLUME 10.6 fl (7.4-10.4); MONOCYTE # 0.4 10^3/ul (0.3-0.9); MONOCYTES % 12.8 % (0.0-11.0); NEUTROPHIL # 2.6 10^3/ul (1.6-7.5); NEUTROPHILS % 76.2 % (39.0-77.0); PLATELET COUNT 162 10^3/UL (140-415); POSITIVE DIFF @See below; RED BLOOD COUNT 4.82 10^6/ul (4.70-6.10); RED CELL DISTRIBUTION WIDTH 15.7 % (11.5-14.5)
[2018-08-26 06:09] LABS: WHITE BLOOD COUNT 3.4 10^3/ul (4.8-10.8)
[2018-08-26 06:33] LABS: PHOSPHORUS 4.4 mg/dl (2.5-4.9)
[2018-08-26 06:33] LABS: CHOL/HDL RATIO 3.7 RATIO; CHOLESTEROL 167 mg/dl (100-200); HDL CHOLESTEROL 44 mg/dl (31-75); LDL CHOLESTEROL,CALCULATED 103 mg/dl; MAGNESIUM 1.9 mg/dl (1.7-2.5); TRIGLYCERIDES 100 mg/dl (0-149)
[2018-08-26 06:34] LABS: ANION GAP 10 (5-13); BLOOD UREA NITROGEN 11 mg/dl (7-20); CALCIUM 8.9 mg/dl (8.4-10.2); CARBON DIOXIDE 29 mmol/L (21-31); CHLORIDE 101 mmol/L (97-110); CREATININE 0.64 mg/dl (0.61-1.24); GLUCOSE 88 mg/dl (70-220); SODIUM 140 mmol/L (135-144)
[2018-08-26 06:41] LABS: B-TYPE NATRIURETIC PEPTIDE 1150 PG/ML (0-450)
[2018-08-26] MEDS: SUCRALFATE 1 GM TAB PO (08:44)
[2018-08-26] MEDS: DILTIAZEM (CD) 180 MG CAP PO (08:44)
[2018-08-26] MEDS: ASPIRIN (EC) 81 MG TAB PO (08:44)
[2018-08-26] MEDS: APIXABAN 5 MG TABLET PO (08:45)
[2018-08-26] MEDS: METOPROLOL 100 MG TAB PO (08:45)
[2018-08-26] MEDS: FUROSEMIDE 20 MG TAB PO (08:45)
[2018-08-26] MEDS: BUSPIRONE 10 MG TAB PO (08:53)
[2018-08-26] MEDS: AMIODARONE 200 MG TAB PO (10:44)
[2018-08-26] MEDS: INFLUENZA VIRUS VACCINE 0.5 ML (DISPENSING) IM* (10:46)
== END 2018-08-26 14:20 | disposition home or self-care (01) | DRG 310 ==
LOC: E/R 11:44 → 6WM 14:55
DX: I48.0 Paroxysmal atrial fibrillation (principal); I42.1 Obstructive hypertrophic cardiomyopathy; I25.10 Atherosclerotic heart disease of native coronary artery without angina pectoris; I10 Essential (primary) hypertension; E78.5 Hyperlipidemia, unspecified; K21.9 Gastro-esophageal reflux disease without esophagitis; K80.20 Calculus of gallbladder without cholecystitis without obstruction; F41.9 Anxiety disorder, unspecified; Z79.02 Long term (current) use of antithrombotics/antiplatelets; Z79.82 Long term (current) use of aspirin; Z95.5 Presence of coronary angioplasty implant and graft; Z86.73 Personal history of transient ischemic attack (TIA), and cerebral infarction without residual deficits
CPT/HCPCS: 36415; 71045; 80048; 80061; 82550; 82553; 83735; 83880; 84100; 84484; 85025; 87081; 90686; 93005; 96374; 99291-25

== ENCOUNTER 2018-10-14 12:30 | Inpatient (IN) | payer MEDICARE, BC ==
[2018-10-14 13:44] LABS: ADD MAN DIFF? NO
[2018-10-14 13:46] LABS: ABNORMAL IP MESSAGE 1; BASOPHILS % 0.5 % (0.0-2.0); HEMATOCRIT 40.8 % (42.0-52.0); HEMOGLOBIN 13.5 g/dl (14.0-18.0); LYMPHOCYTES # 0.3 10^3/ul (0.8-2.9); LYMPHOCYTES % 7.2 % (15.0-51.0); MEAN CORPUSCULAR HEMOGLOBIN 28.7 pg (29.0-33.0); MEAN CORPUSCULAR HGB CONC 33.1 g/dl (32.0-37.0); MEAN CORPUSCULAR VOLUME 86.6 fl (82.0-101.0); MONOCYTE # 0.4 10^3/ul (0.3-0.9); MONOCYTES % 10.1 % (0.0-11.0); NEUTROPHIL # 3.3 10^3/ul (1.6-7.5); PLATELET COUNT 141 10^3/UL (140-415); POSITIVE DIFF @See below; RED BLOOD COUNT 4.71 10^6/ul (4.70-6.10); RED CELL DISTRIBUTION WIDTH 16.2 % (11.5-14.5)
[2018-10-14] MEDS: SOD CHLORIDE 0.9% 1,000 ML IV (13:46)
[2018-10-14] MEDS: ONDANSETRON 4 MG INJ IV (13:46)
[2018-10-14] MEDS: LORAZEPAM 2 MG INJ IV (13:46)
[2018-10-14] MEDS: MAGNESIUM SULFATE 2 GM/50 ML 50 ML IVPB (13:46)
[2018-10-14 14:03] LABS: ALANINE AMINOTRANSFERASE 33 IU/L (13-69); ALBUMIN 4.3 g/dl (3.3-4.9); ALBUMIN/GLOBULIN RATIO 1.16; ALKALINE PHOSPHATASE 83 IU/L (42-121); ANION GAP 14 (5-13); ASPARTATE AMINO TRANSFERASE 77 IU/L (15-46); BILIRUBIN,INDIRECT 1.6 mg/dl (0-1.1); BILIRUBIN,TOTAL 1.6 mg/dl (0.2-1.3); BLOOD UREA NITROGEN 13 mg/dl (7-20); CALCIUM 9.4 mg/dl (8.4-10.2); CARBON DIOXIDE 24 mmol/L (21-31); CHLORIDE 103 mmol/L (97-110); CREATININE 0.56 mg/dl (0.61-1.24); GLUCOSE 114 mg/dl (70-220); LIPASE 78 U/L (23-300); POTASSIUM 4.2 mmol/L (3.5-5.1); SODIUM 141 mmol/L (135-144)
[2018-10-14 14:10] LABS: ETHANOL < 10.0 mg/dl (0-0)
[2018-10-14 14:11] LABS: INR 1.08; PARTIAL THROMBOPLASTIN TIME 31.6 Sec (23.0-35.0); PROTIME 14.1 Sec (11.9-14.9); PT RATIO 1.1
[2018-10-14 14:15] LABS: B-TYPE NATRIURETIC PEPTIDE 2760 PG/ML (0-450); TROPONIN-I 0.026 ng/ml (0.000-0.120)
[2018-10-14 20:06] LABS: TROPONIN-I 0.025 ng/ml (0.000-0.120)
[2018-10-14] MEDS: ATORVASTATIN 20 MG TAB PO (20:47)
[2018-10-14] MEDS: SUCRALFATE 1 GM TAB PO (20:47)
[2018-10-14] MEDS: APIXABAN 5 MG TABLET PO (20:47)
[2018-10-14] MEDS: LORAZEPAM 4 MG/ML VIAL IV (21:52)
[2018-10-14] MEDS ORDERED: LORAZEPAM 4 MG/ML VIAL IV (22:00)
[2018-10-15 01:52] LABS: TROPONIN-I 0.033 ng/ml (0.000-0.120)
[2018-10-15] MEDS: PANTOPRAZOLE (EC) 40 MG TAB PO (05:47)
[2018-10-15] MEDS: LORAZEPAM 4 MG/ML VIAL IV ×3 (05:47→22:28)
[2018-10-15 06:28] LABS: ADD MAN DIFF? NO
[2018-10-15 06:35] LABS: WHITE BLOOD COUNT 3.6 10^3/ul (4.8-10.8)
[2018-10-15 06:35] LABS: ABNORMAL IP MESSAGE 1; BASOPHILS % 0.8 % (0.0-2.0); HEMATOCRIT 38.3 % (42.0-52.0); HEMOGLOBIN 12.6 g/dl (14.0-18.0); LYMPHOCYTES # 0.4 10^3/ul (0.8-2.9); LYMPHOCYTES % 9.8 % (15.0-51.0); MEAN CORPUSCULAR HEMOGLOBIN 29.1 pg (29.0-33.0); MEAN CORPUSCULAR HGB CONC 32.9 g/dl (32.0-37.0); MEAN CORPUSCULAR VOLUME 88.5 fl (82.0-101.0); MEAN PLATELET VOLUME 11.4 fl (7.4-10.4); MONOCYTE # 0.5 10^3/ul (0.3-0.9); MONOCYTES % 14.2 % (0.0-11.0); NEUTROPHIL # 2.7 10^3/ul (1.6-7.5); NEUTROPHILS % 75.2 % (39.0-77.0); PLATELET COUNT 117 10^3/UL (140-415); POSITIVE DIFF @See below; RED BLOOD COUNT 4.33 10^6/ul (4.70-6.10); RED CELL DISTRIBUTION WIDTH 16.1 % (11.5-14.5)
[2018-10-15 07:04] LABS: CHOLESTEROL 164 mg/dl (100-200)
[2018-10-15 07:04] LABS: CHOL/HDL RATIO 3.5 RATIO; HDL CHOLESTEROL 46 mg/dl (31-75); LDL CHOLESTEROL,CALCULATED 101 mg/dl; TRIGLYCERIDES 84 mg/dl (0-149)
[2018-10-15 07:09] LABS: ALANINE AMINOTRANSFERASE 30 IU/L (13-69); ALBUMIN 3.5 g/dl (3.3-4.9); ALBUMIN/GLOBULIN RATIO 1.12; ALKALINE PHOSPHATASE 62 IU/L (42-121); ANION GAP 10 (5-13); ASPARTATE AMINO TRANSFERASE 51 IU/L (15-46); BILIRUBIN,INDIRECT 1.5 mg/dl (0-1.1); BILIRUBIN,TOTAL 1.5 mg/dl (0.2-1.3); BLOOD UREA NITROGEN 10 mg/dl (7-20); CALCIUM 8.5 mg/dl (8.4-10.2); CARBON DIOXIDE 27 mmol/L (21-31); CHLORIDE 104 mmol/L (97-110); CREATININE 0.62 mg/dl (0.61-1.24); GLUCOSE 89 mg/dl (70-220); POTASSIUM 3.6 mmol/L (3.5-5.1); SODIUM 141 mmol/L (135-144); TOTAL PROTEIN 6.6 g/dl (6.1-8.1)
[2018-10-15 07:14] LABS: FREE T4 (FREE THYROXINE) 1.24 ng/dl (0.78-2.44)
[2018-10-15 08:13] LABS: B-TYPE NATRIURETIC PEPTIDE 2160 PG/ML (0-450)
[2018-10-15] MEDS: ASPIRIN 81 MG TAB PO (08:39)
[2018-10-15] MEDS: APIXABAN 5 MG TABLET PO ×2 (08:39→20:48)
[2018-10-15] MEDS: SUCRALFATE 1 GM TAB PO ×2 (08:39→20:48)
[2018-10-15] MEDS: DILTIAZEM (CD) 240 MG CAP PO (08:40)
[2018-10-15] MEDS: ATORVASTATIN 20 MG TAB PO (20:48)
[2018-10-16] MEDS: LORAZEPAM 4 MG/ML VIAL IV ×3 (06:11→21:03)
[2018-10-16] MEDS: PANTOPRAZOLE (EC) 40 MG TAB PO (06:11)
[2018-10-16] MEDS: SUCRALFATE 1 GM TAB PO ×2 (08:25→21:02)
[2018-10-16] MEDS: APIXABAN 5 MG TABLET PO ×2 (08:26→21:02)
[2018-10-16] MEDS: ASPIRIN 81 MG TAB PO (08:27)
[2018-10-16] MEDS: METOCLOPRAMIDE 5 MG TAB PO (08:27)
[2018-10-16] MEDS: DILTIAZEM (CD) 240 MG CAP PO (08:27)
[2018-10-16] MEDS: FUROSEMIDE 20 MG INJ IV (18:32)
[2018-10-16] MEDS: ATORVASTATIN 20 MG TAB PO (21:02)
[2018-10-17 06:34] LABS: ADD MAN DIFF? NO
[2018-10-17 06:46] LABS: ABNORMAL IP MESSAGE 1; BASOPHILS % 0.3 % (0.0-2.0); HEMATOCRIT 38.7 % (42.0-52.0); HEMOGLOBIN 12.6 g/dl (14.0-18.0); LYMPHOCYTES # 0.4 10^3/ul (0.8-2.9); LYMPHOCYTES % 9.8 % (15.0-51.0); MEAN CORPUSCULAR HGB CONC 32.6 g/dl (32.0-37.0); MEAN PLATELET VOLUME 11.6 fl (7.4-10.4); MONOCYTE # 0.6 10^3/ul (0.3-0.9); MONOCYTES % 15.2 % (0.0-11.0); NEUTROPHIL # 2.9 10^3/ul (1.6-7.5); NEUTROPHILS % 74.4 % (39.0-77.0); PLATELET COUNT 106 10^3/UL (140-415); POSITIVE DIFF @See below; RED BLOOD COUNT 4.35 10^6/ul (4.70-6.10); RED CELL DISTRIBUTION WIDTH 16.1 % (11.5-14.5)
[2018-10-17 06:46] LABS: WHITE BLOOD COUNT 3.9 10^3/ul (4.8-10.8)
[2018-10-17] MEDS: PANTOPRAZOLE (EC) 40 MG TAB PO (06:49)
[2018-10-17] MEDS: LORAZEPAM 4 MG/ML VIAL IV ×3 (06:49→21:15)
[2018-10-17 06:59] LABS: ALANINE AMINOTRANSFERASE 23 IU/L (13-69); ALBUMIN 3.6 g/dl (3.3-4.9); ALKALINE PHOSPHATASE 72 IU/L (42-121); ANION GAP 6 (5-13); ASPARTATE AMINO TRANSFERASE 48 IU/L (15-46); BILIRUBIN,INDIRECT 1.8 mg/dl (0-1.1); BILIRUBIN,TOTAL 1.8 mg/dl (0.2-1.3); BLOOD UREA NITROGEN 12 mg/dl (7-20); CALCIUM 8.7 mg/dl (8.4-10.2); CARBON DIOXIDE 30 mmol/L (21-31); CHLORIDE 103 mmol/L (97-110); CREATININE 0.74 mg/dl (0.61-1.24); GLUCOSE 93 mg/dl (70-220); POTASSIUM 3.6 mmol/L (3.5-5.1); SODIUM 139 mmol/L (135-144); TOTAL PROTEIN 7.6 g/dl (6.1-8.1)
[2018-10-17] MEDS: SUCRALFATE 1 GM TAB PO ×2 (08:24→21:15)
[2018-10-17] MEDS: ASPIRIN 81 MG TAB PO (08:24)
[2018-10-17] MEDS: APIXABAN 5 MG TABLET PO ×2 (08:24→21:15)
[2018-10-17] MEDS: DILTIAZEM (CD) 240 MG CAP PO (08:25)
[2018-10-17] MEDS: FUROSEMIDE 20 MG INJ IV (16:24)
[2018-10-17] MEDS: ATORVASTATIN 20 MG TAB PO (21:15)
[2018-10-18] MEDS: LORAZEPAM 4 MG/ML VIAL IV ×3 (05:29→21:59)
[2018-10-18] MEDS: PANTOPRAZOLE (EC) 40 MG TAB PO (05:29)
[2018-10-18] MEDS: APIXABAN 5 MG TABLET PO ×2 (08:38→20:10)
[2018-10-18] MEDS: SUCRALFATE 1 GM TAB PO ×2 (08:38→20:09)
[2018-10-18] MEDS: ASPIRIN 81 MG TAB PO (08:38)
[2018-10-18] MEDS: DILTIAZEM (CD) 240 MG CAP PO (08:38)
[2018-10-18] MEDS: FUROSEMIDE 20 MG INJ IV (12:48)
[2018-10-18 14:45] LABS: ANION GAP 11 (5-13); BLOOD UREA NITROGEN 15 mg/dl (7-20); CALCIUM 9.2 mg/dl (8.4-10.2); CARBON DIOXIDE 24 mmol/L (21-31); CHLORIDE 103 mmol/L (97-110); CREATININE 0.62 mg/dl (0.61-1.24); GLUCOSE 135 mg/dl (70-220); POTASSIUM 3.7 mmol/L (3.5-5.1); SODIUM 138 mmol/L (135-144)
[2018-10-18] MEDS: ATORVASTATIN 20 MG TAB PO (20:10)
[2018-10-19] MEDS: PANTOPRAZOLE (EC) 40 MG TAB PO (05:47)
[2018-10-19] MEDS: LORAZEPAM 4 MG/ML VIAL IV ×2 (05:48→14:00)
[2018-10-19 06:24] LABS: ADD MAN DIFF? NO
[2018-10-19 06:38] LABS: ABNORMAL IP MESSAGE 1; BASOPHILS % 0.6 % (0.0-2.0); EOSINOPHILS % 0.3 % (0.0-7.0); HEMATOCRIT 39.9 % (42.0-52.0); HEMOGLOBIN 13.1 g/dl (14.0-18.0); LYMPHOCYTES # 0.3 10^3/ul (0.8-2.9); LYMPHOCYTES % 9.8 % (15.0-51.0); MEAN CORPUSCULAR HEMOGLOBIN 29.4 pg (29.0-33.0); MEAN CORPUSCULAR HGB CONC 32.8 g/dl (32.0-37.0); MEAN CORPUSCULAR VOLUME 89.5 fl (82.0-101.0); MEAN PLATELET VOLUME 11.1 fl (7.4-10.4); MONOCYTE # 0.6 10^3/ul (0.3-0.9); MONOCYTES % 17.1 % (0.0-11.0); NEUTROPHIL # 2.4 10^3/ul (1.6-7.5); NEUTROPHILS % 71.9 % (39.0-77.0); PLATELET COUNT 129 10^3/UL (140-415); POSITIVE DIFF @See below; RED BLOOD COUNT 4.46 10^6/ul (4.70-6.10); RED CELL DISTRIBUTION WIDTH 16.2 % (11.5-14.5)
[2018-10-19 06:38] LABS: WHITE BLOOD COUNT 3.3 10^3/ul (4.8-10.8)
[2018-10-19 07:10] LABS: ANION GAP 8 (5-13); BLOOD UREA NITROGEN 16 mg/dl (7-20); CARBON DIOXIDE 27 mmol/L (21-31); CHLORIDE 104 mmol/L (97-110); CREATININE 0.62 mg/dl (0.61-1.24); GLUCOSE 94 mg/dl (70-220); MAGNESIUM 2.2 mg/dl (1.7-2.5); POTASSIUM 3.3 mmol/L (3.5-5.1); SODIUM 139 mmol/L (135-144)
[2018-10-19] MEDS: ASPIRIN 81 MG TAB PO (07:33)
[2018-10-19] MEDS: SUCRALFATE 1 GM TAB PO (07:33)
[2018-10-19] MEDS: DILTIAZEM (CD) 240 MG CAP PO (07:33)
[2018-10-19] MEDS: APIXABAN 5 MG TABLET PO (07:34)
[2018-10-19] MEDS: POTASSIUM CHLORIDE (SR) 20 MEQ TAB PO ×2 (12:19→14:10)
[2018-10-19] MEDS: FUROSEMIDE 20 MG INJ IV (12:20)
== END 2018-10-19 15:56 | disposition home or self-care (01) | DRG 897 ==
LOC: E/R 12:30 → TEL 14:29
DX: F10.239 Alcohol dependence with withdrawal, unspecified (principal); I42.1 Obstructive hypertrophic cardiomyopathy; R25.1 Tremor, unspecified; I35.0 Nonrheumatic aortic (valve) stenosis; Z95.5 Presence of coronary angioplasty implant and graft; F41.9 Anxiety disorder, unspecified; I10 Essential (primary) hypertension; I48.0 Paroxysmal atrial fibrillation; E87.6 Hypokalemia
CPT/HCPCS: 36415; 71045; 80048; 80053; 80061; 80307; 83690; 83735; 83880; 84439; 84443; 84484; 85025; 85610; 85730; 93005; 96374; 96375; 99291-25

== ENCOUNTER 2018-12-12 11:21 | Inpatient (IN) | payer MEDICARE, BC ==
[2018-12-12] MEDS: LORAZEPAM 2 MG INJ IV (11:41)
[2018-12-12] MEDS: ASPIRIN 81 MG TAB PO (11:41)
[2018-12-12 11:49] LABS: ADD MAN DIFF? NO
[2018-12-12 12:08] LABS: BASOPHILS % 0.8 % (0.0-2.0); HEMATOCRIT 43.4 % (42.0-52.0); HEMOGLOBIN 13.5 g/dl (14.0-18.0); LYMPHOCYTES % 26.3 % (15.0-51.0); MEAN CORPUSCULAR HEMOGLOBIN 28.3 pg (29.0-33.0); MEAN CORPUSCULAR HGB CONC 31.1 g/dl (32.0-37.0); MEAN PLATELET VOLUME 11.3 fl (7.4-10.4); MONOCYTE # 0.4 10^3/ul (0.3-0.9); MONOCYTES % 11.4 % (0.0-11.0); NEUTROPHIL # 2.2 10^3/ul (1.6-7.5); NEUTROPHILS % 61.2 % (39.0-77.0); PLATELET COUNT 132 10^3/UL (140-415); RED BLOOD COUNT 4.77 10^6/ul (4.70-6.10); RED CELL DISTRIBUTION WIDTH 15.8 % (11.5-14.5)
[2018-12-12 12:08] LABS: WHITE BLOOD COUNT 3.6 10^3/ul (4.8-10.8)
[2018-12-12 12:13] LABS: ANION GAP 14 (5-13); BLOOD UREA NITROGEN 10 mg/dl (7-20); CALCIUM 8.8 mg/dl (8.4-10.2); CARBON DIOXIDE 22 mmol/L (21-31); CHLORIDE 111 mmol/L (97-110); CREATININE 0.64 mg/dl (0.61-1.24); GLUCOSE 82 mg/dl (70-220); INR 1.06; POTASSIUM 4.4 mmol/L (3.5-5.1); PROTIME 13.9 Sec (11.9-14.9); PT RATIO 1.1; SODIUM 147 mmol/L (135-144)
[2018-12-12 12:25] LABS: B-TYPE NATRIURETIC PEPTIDE 429 PG/ML (0-450); TROPONIN-I 0.017 ng/ml (0.000-0.120)
[2018-12-12] MEDS ORDERED: ACETAMINOPHEN 325 MG TAB PO (13:30)
[2018-12-12] MEDS ORDERED: ONDANSETRON 4 MG INJ IV (13:30)
[2018-12-12] MEDS ORDERED: LORAZEPAM 0.5 MG TAB PO (15:30)
[2018-12-12] MEDS: PANTOPRAZOLE (EC) 40 MG TAB PO (15:56)
[2018-12-12] MEDS: METOPROLOL (XL) 100 MG TAB PO (15:57)
[2018-12-12] MEDS: DILTIAZEM (CD) 240 MG CAP PO (15:57)
[2018-12-12] MEDS ORDERED: NACL 0.9% 3 ML SYG IV (16:00)
[2018-12-12 19:16] LABS: CREATINE KINASE 48 IU/L (23-200)
[2018-12-12 19:28] LABS: CK INDEX 2.8; CK-MB 1.35 ng/ml (0.0-2.4); TROPONIN-I < 0.012 ng/ml (0.000-0.120)
[2018-12-12] MEDS: APIXABAN 5 MG TABLET PO (21:18)
[2018-12-12] MEDS: BUSPIRONE 5 MG TAB PO (21:18)
[2018-12-12] MEDS: SUCRALFATE 1 GM TAB PO (21:18)
[2018-12-12] MEDS: ATORVASTATIN 40 MG TAB PO (21:19)
[2018-12-12] MEDS: ONDANSETRON 4 MG INJ IV (23:04)
[2018-12-12] MEDS: ACETAMINOPHEN 325 MG TAB PO (23:08)
[2018-12-12] MEDS: LORAZEPAM 0.5 MG TAB PO (23:13)
[2018-12-13] MEDS: morphine 4 MG/ML VIAL IV ×2 (00:18→04:38)
[2018-12-13 01:18] LABS: CREATINE KINASE 53 IU/L (23-200)
[2018-12-13 01:32] LABS: CK INDEX 2.8; CK-MB 1.46 ng/ml (0.0-2.4); TROPONIN-I 0.015 ng/ml (0.000-0.120)
[2018-12-13] MEDS ORDERED: DICYCLOMINE 10 MG CAP PO (05:42)
[2018-12-13 08:16] LABS: ADD MAN DIFF? NO
[2018-12-13 08:20] LABS: WHITE BLOOD COUNT 2.5 10^3/ul (4.8-10.8)
[2018-12-13 08:20] LABS: ABNORMAL IP MESSAGE 1; BASOPHILS % 0.4 % (0.0-2.0); HEMATOCRIT 40.3 % (42.0-52.0); HEMOGLOBIN 12.9 g/dl (14.0-18.0); LYMPHOCYTES # 0.2 10^3/ul (0.8-2.9); LYMPHOCYTES % 7.6 % (15.0-51.0); MEAN CORPUSCULAR HEMOGLOBIN 28.9 pg (29.0-33.0); MEAN CORPUSCULAR VOLUME 90.2 fl (82.0-101.0); MEAN PLATELET VOLUME 10.9 fl (7.4-10.4); MONOCYTE # 0.3 10^3/ul (0.3-0.9); MONOCYTES % 10.8 % (0.0-11.0); NEUTROPHILS % 80.4 % (39.0-77.0); PLATELET COUNT 100 10^3/UL (140-415); POSITIVE DIFF @See below; RED BLOOD COUNT 4.47 10^6/ul (4.70-6.10); RED CELL DISTRIBUTION WIDTH 15.4 % (11.5-14.5)
[2018-12-13] MEDS: APIXABAN 5 MG TABLET PO ×2 (08:32→20:34)
[2018-12-13] MEDS: BUSPIRONE 5 MG TAB PO ×2 (08:32→20:34)
[2018-12-13] MEDS: PANTOPRAZOLE (EC) 40 MG TAB PO (08:32)
[2018-12-13] MEDS: METOPROLOL (XL) 100 MG TAB PO (08:32)
[2018-12-13] MEDS: SUCRALFATE 1 GM TAB PO ×2 (08:32→20:34)
[2018-12-13] MEDS: ASPIRIN (EC) 81 MG TAB PO (08:33)
[2018-12-13] MEDS: DILTIAZEM (CD) 240 MG CAP PO (08:33)
[2018-12-13 08:49] LABS: ALANINE AMINOTRANSFERASE 26 IU/L (13-69); ALBUMIN/GLOBULIN RATIO 1.14; ALKALINE PHOSPHATASE 76 IU/L (42-121); ANION GAP 10 (5-13); ASPARTATE AMINO TRANSFERASE 49 IU/L (15-46); BILIRUBIN,INDIRECT 1.5 mg/dl (0-1.1); BILIRUBIN,TOTAL 1.5 mg/dl (0.2-1.3); BLOOD UREA NITROGEN 12 mg/dl (7-20); CALCIUM 8.8 mg/dl (8.4-10.2); CARBON DIOXIDE 25 mmol/L (21-31); CHLORIDE 106 mmol/L (97-110); CHOL/HDL RATIO 2.8 RATIO; CHOLESTEROL 184 mg/dl (100-200); CREATININE 0.59 mg/dl (0.61-1.24); GLUCOSE 122 mg/dl (70-220); HDL CHOLESTEROL 64 mg/dl (31-75); LDL CHOLESTEROL,CALCULATED 109 mg/dl; POTASSIUM 4.1 mmol/L (3.5-5.1); SODIUM 141 mmol/L (135-144); TOTAL PROTEIN 7.5 g/dl (6.1-8.1); TRIGLYCERIDES 53 mg/dl (0-149)
[2018-12-13 08:59] LABS: FREE THYROXINE INDEX (Calc) 2.84 ug/ml (0.65-3.89); T3 UPTAKE 35.9 % (23.5-40.5); T4 (THYROXINE) 7.9 ug/dl (5.5-11.0)
[2018-12-13] MEDS: FUROSEMIDE 20 MG INJ IM (13:55)
[2018-12-13] MEDS: ONDANSETRON 4 MG INJ IV (15:09)
[2018-12-13] MEDS: ATORVASTATIN 40 MG TAB PO (20:34)
[2018-12-14] MEDS: PANTOPRAZOLE (EC) 40 MG TAB PO (08:41)
[2018-12-14] MEDS: APIXABAN 5 MG TABLET PO ×2 (08:41→20:23)
[2018-12-14] MEDS: DILTIAZEM (CD) 240 MG CAP PO (08:41)
[2018-12-14] MEDS: SUCRALFATE 1 GM TAB PO ×2 (08:41→20:23)
[2018-12-14] MEDS: ASPIRIN (EC) 81 MG TAB PO (08:41)
[2018-12-14] MEDS: BUSPIRONE 5 MG TAB PO ×2 (08:41→20:23)
[2018-12-14] MEDS: FUROSEMIDE 40 MG INJ IV (10:18)
[2018-12-14] MEDS: METOPROLOL (XL) 100 MG TAB PO (12:26)
[2018-12-14] MEDS: ATORVASTATIN 40 MG TAB PO (20:23)
[2018-12-14] MEDS: LORAZEPAM 0.5 MG TAB PO (23:03)
[2018-12-15 06:21] LABS: ADD MAN DIFF? NO
[2018-12-15 06:42] LABS: ABNORMAL IP MESSAGE 1; BASOPHILS % 0.3 % (0.0-2.0); HEMATOCRIT 41.1 % (42.0-52.0); HEMOGLOBIN 13.1 g/dl (14.0-18.0); LYMPHOCYTES # 0.4 10^3/ul (0.8-2.9); LYMPHOCYTES % 11.5 % (15.0-51.0); MEAN CORPUSCULAR HGB CONC 31.9 g/dl (32.0-37.0); MEAN CORPUSCULAR VOLUME 91.1 fl (82.0-101.0); MEAN PLATELET VOLUME 11.7 fl (7.4-10.4); MONOCYTE # 0.4 10^3/ul (0.3-0.9); MONOCYTES % 13.8 % (0.0-11.0); NEUTROPHIL # 2.3 10^3/ul (1.6-7.5); NEUTROPHILS % 73.7 % (39.0-77.0); PLATELET COUNT 99 10^3/UL (140-415); POSITIVE DIFF @See below; RED BLOOD COUNT 4.51 10^6/ul (4.70-6.10); RED CELL DISTRIBUTION WIDTH 15.5 % (11.5-14.5)
[2018-12-15 06:42] LABS: WHITE BLOOD COUNT 3.1 10^3/ul (4.8-10.8)
[2018-12-15 06:54] LABS: ANION GAP 12 (5-13); BLOOD UREA NITROGEN 19 mg/dl (7-20); CALCIUM 8.9 mg/dl (8.4-10.2); CARBON DIOXIDE 32 mmol/L (21-31); CHLORIDE 99 mmol/L (97-110); CREATININE 0.79 mg/dl (0.61-1.24); GLUCOSE 97 mg/dl (70-220); POTASSIUM 3.4 mmol/L (3.5-5.1); SODIUM 143 mmol/L (135-144)
[2018-12-15] MEDS: PANTOPRAZOLE (EC) 40 MG TAB PO (08:27)
[2018-12-15] MEDS: METOPROLOL (XL) 100 MG TAB PO (08:27)
[2018-12-15] MEDS: ASPIRIN (EC) 81 MG TAB PO (08:27)
[2018-12-15] MEDS: BUSPIRONE 5 MG TAB PO ×2 (08:27→21:03)
[2018-12-15] MEDS: APIXABAN 5 MG TABLET PO ×2 (08:27→21:03)
[2018-12-15] MEDS: SUCRALFATE 1 GM TAB PO ×2 (08:27→21:03)
[2018-12-15] MEDS: DILTIAZEM (CD) 240 MG CAP PO (08:28)
[2018-12-15] MEDS: LORAZEPAM 2 MG INJ IV (10:33)
[2018-12-15] MEDS: POTASSIUM CHLORIDE (SR) 10 MEQ TAB PO (14:00)
[2018-12-15 15:13] LABS: AMMONIA 15 umol/l (9-30)
[2018-12-15] MEDS: ATORVASTATIN 40 MG TAB PO (21:03)
[2018-12-15] MEDS: ZOLPIDEM 5 MG TAB PO (21:06)
[2018-12-15 23:54] LABS: UR MUCUS MANY /HPF (NONE SEEN); UR RBC 21 /HPF (0-5); UR WBC 4 /HPF (0-5)
[2018-12-16] MEDS: LORAZEPAM 2 MG INJ IV (01:10)
[2018-12-16 06:25] LABS: ADD MAN DIFF? NO
[2018-12-16 06:37] LABS: WHITE BLOOD COUNT 2.8 10^3/ul (4.8-10.8)
[2018-12-16 06:37] LABS: ABNORMAL IP MESSAGE 1; BASOPHILS % 0.4 % (0.0-2.0); HEMATOCRIT 40.9 % (42.0-52.0); HEMOGLOBIN 13.3 g/dl (14.0-18.0); LYMPHOCYTES # 0.4 10^3/ul (0.8-2.9); MEAN CORPUSCULAR HGB CONC 32.5 g/dl (32.0-37.0); MEAN CORPUSCULAR VOLUME 89.3 fl (82.0-101.0); MEAN PLATELET VOLUME 11.5 fl (7.4-10.4); MONOCYTE # 0.5 10^3/ul (0.3-0.9); MONOCYTES % 16.8 % (0.0-11.0); NEUTROPHIL # 1.9 10^3/ul (1.6-7.5); NEUTROPHILS % 68.4 % (39.0-77.0); PLATELET COUNT 90 10^3/UL (140-415); POSITIVE DIFF @See below; RED BLOOD COUNT 4.58 10^6/ul (4.70-6.10); RED CELL DISTRIBUTION WIDTH 15.9 % (11.5-14.5)
[2018-12-16 07:19] LABS: ALANINE AMINOTRANSFERASE 32 IU/L (13-69); ALBUMIN 3.7 g/dl (3.3-4.9); ALBUMIN/GLOBULIN RATIO 1.02; ALKALINE PHOSPHATASE 71 IU/L (42-121); ANION GAP 9 (5-13); ASPARTATE AMINO TRANSFERASE 71 IU/L (15-46); BILIRUBIN,INDIRECT 1.3 mg/dl (0-1.1); BILIRUBIN,TOTAL 1.3 mg/dl (0.2-1.3); BLOOD UREA NITROGEN 20 mg/dl (7-20); CARBON DIOXIDE 27 mmol/L (21-31); CREATININE 0.62 mg/dl (0.61-1.24); GLUCOSE 88 mg/dl (70-220); MAGNESIUM 2.1 mg/dl (1.7-2.5); POTASSIUM 3.2 mmol/L (3.5-5.1); SODIUM 142 mmol/L (135-144); TOTAL PROTEIN 7.3 g/dl (6.1-8.1)
[2018-12-16 07:25] LABS: CHLORIDE 106 mmol/L (97-110)
[2018-12-16] MEDS: PANTOPRAZOLE (EC) 40 MG TAB PO (08:28)
[2018-12-16] MEDS: BUSPIRONE 5 MG TAB PO ×2 (08:28→20:05)
[2018-12-16] MEDS: APIXABAN 5 MG TABLET PO ×2 (08:28→20:05)
[2018-12-16] MEDS: ASPIRIN (EC) 81 MG TAB PO (08:28)
[2018-12-16] MEDS: METOPROLOL (XL) 100 MG TAB PO (08:29)
[2018-12-16] MEDS: DILTIAZEM (CD) 240 MG CAP PO (08:29)
[2018-12-16] MEDS: SUCRALFATE 1 GM TAB PO ×2 (08:29→20:05)
[2018-12-16] MEDS: CEFTRIAXONE 1 GM/50 ML (PMX) 50 ML IVPB (09:58)
[2018-12-16] MEDS: POTASSIUM CHLORIDE (SR) 20 MEQ TAB PO (10:01)
[2018-12-16] MEDS: ATORVASTATIN 40 MG TAB PO (20:05)
[2018-12-17 07:02] LABS: ADD MAN DIFF? NO
[2018-12-17 07:17] LABS: WHITE BLOOD COUNT 2.3 10^3/ul (4.8-10.8)
[2018-12-17 07:17] LABS: ABNORMAL IP MESSAGE 1; BASOPHILS % 0.4 % (0.0-2.0); EOSINOPHILS % 0.4 % (0.0-7.0); HEMATOCRIT 39.2 % (42.0-52.0); HEMOGLOBIN 12.4 g/dl (14.0-18.0); LYMPHOCYTES # 0.3 10^3/ul (0.8-2.9); LYMPHOCYTES % 12.4 % (15.0-51.0); MEAN CORPUSCULAR HEMOGLOBIN 29.3 pg (29.0-33.0); MEAN CORPUSCULAR HGB CONC 31.6 g/dl (32.0-37.0); MEAN CORPUSCULAR VOLUME 92.7 fl (82.0-101.0); MEAN PLATELET VOLUME 12.1 fl (7.4-10.4); MONOCYTE # 0.4 10^3/ul (0.3-0.9); MONOCYTES % 18.9 % (0.0-11.0); NEUTROPHIL # 1.6 10^3/ul (1.6-7.5); NEUTROPHILS % 67.5 % (39.0-77.0); PLATELET COUNT 90 10^3/UL (140-415); POSITIVE DIFF @See below; RED BLOOD COUNT 4.23 10^6/ul (4.70-6.10); RED CELL DISTRIBUTION WIDTH 15.9 % (11.5-14.5)
[2018-12-17 07:42] LABS: ANION GAP 8 (5-13); BLOOD UREA NITROGEN 19 mg/dl (7-20); CALCIUM 8.9 mg/dl (8.4-10.2); CARBON DIOXIDE 28 mmol/L (21-31); CHLORIDE 106 mmol/L (97-110); GLUCOSE 100 mg/dl (70-220); POTASSIUM 3.9 mmol/L (3.5-5.1); SODIUM 142 mmol/L (135-144)
[2018-12-17] MEDS: POTASSIUM CHLORIDE (SR) 20 MEQ TAB PO (08:25)
[2018-12-17] MEDS: METOPROLOL (XL) 100 MG TAB PO (08:26)
[2018-12-17] MEDS: DILTIAZEM (CD) 240 MG CAP PO (08:26)
[2018-12-17] MEDS: PANTOPRAZOLE (EC) 40 MG TAB PO (08:26)
[2018-12-17] MEDS: BUSPIRONE 5 MG TAB PO ×2 (08:26→20:59)
[2018-12-17] MEDS: APIXABAN 5 MG TABLET PO ×2 (08:26→20:59)
[2018-12-17] MEDS: ASPIRIN (EC) 81 MG TAB PO (08:27)
[2018-12-17] MEDS: SUCRALFATE 1 GM TAB PO ×2 (08:27→20:59)
[2018-12-17] MEDS: CEFTRIAXONE 1 GM/50 ML (PMX) 50 ML IVPB (09:34)
[2018-12-17] MEDS: THIAMINE 100 MG TAB PO (14:59)
[2018-12-17] MEDS: ATORVASTATIN 40 MG TAB PO (20:59)
[2018-12-17] MEDS: LORAZEPAM 0.5 MG TAB PO (23:46)
[2018-12-18 05:32] LABS: ABNORMAL IP MESSAGE 1; HEMATOCRIT 42.9 % (42.0-52.0); MEAN CORPUSCULAR HEMOGLOBIN 28.5 pg (29.0-33.0); MEAN CORPUSCULAR HGB CONC 30.3 g/dl (32.0-37.0); MEAN CORPUSCULAR VOLUME 94.1 fl (82.0-101.0); PLATELET COUNT 89 10^3/UL (140-415); POSITIVE DIFF @See below; RED BLOOD COUNT 4.56 10^6/ul (4.70-6.10); RED CELL DISTRIBUTION WIDTH 15.8 % (11.5-14.5)
[2018-12-18 05:34] LABS: ADD MAN DIFF? YES
[2018-12-18 05:50] LABS: ANION GAP 7 (5-13); BLOOD UREA NITROGEN 13 mg/dl (7-20); CALCIUM 8.8 mg/dl (8.4-10.2); CARBON DIOXIDE 26 mmol/L (21-31); CHLORIDE 107 mmol/L (97-110); CREATININE 0.67 mg/dl (0.61-1.24); GLUCOSE 85 mg/dl (70-220); POTASSIUM 4.4 mmol/L (3.5-5.1); SODIUM 140 mmol/L (135-144)
[2018-12-18 07:12] LABS: ANISOCYTOSIS 1+ (0-0); BAND NEUTROPHILS % (M) 4 % (0-4); GIANT THROMBO% (M) 6 % (0-0); LYMPHOCYTES #M 0.4 10^3/ul (0.8-2.9); LYMPHOCYTES % (M) 20 % (15-51); MONOCYTE #M 0.2 10^3/ul (0.3-0.9); MONOCYTES % (M) 14 % (0-11); PLATELET ESTIMATE DECREASED; REACTIVE LYMPHOCYTES% (M) 2 % (0-0); SEG NEUT #M 1.2 10^3/ul (1.6-7.5); SEGMENTED NEUTROPHILS (M) % 60 % (39-77); SMUDGE%M 32 % (0-0)
[2018-12-18] MEDS: APIXABAN 5 MG TABLET PO ×2 (08:46→20:40)
[2018-12-18] MEDS: SUCRALFATE 1 GM TAB PO ×2 (08:46→20:40)
[2018-12-18] MEDS: BUSPIRONE 5 MG TAB PO ×2 (08:46→20:40)
[2018-12-18] MEDS: ASPIRIN (EC) 81 MG TAB PO (08:46)
[2018-12-18] MEDS: THIAMINE 100 MG TAB PO (08:46)
[2018-12-18] MEDS: POTASSIUM CHLORIDE (SR) 20 MEQ TAB PO (08:47)
[2018-12-18] MEDS: CEFTRIAXONE 1 GM/50 ML (PMX) 50 ML IVPB (08:52)
[2018-12-18] MEDS: PANTOPRAZOLE (EC) 40 MG TAB PO (09:00)
[2018-12-18] MEDS: METOPROLOL (XL) 100 MG TAB PO (10:13)
[2018-12-18] MEDS: DILTIAZEM (CD) 240 MG CAP PO (10:13)
[2018-12-18] MEDS: NEOMYC/POLYMYX/HC 7.5 ML OPH BOTH EYES ×2 (14:34→20:41)
[2018-12-18] MEDS: DOCUSATE SODIUM 100 MG CAP PO (18:01)
[2018-12-18] MEDS: ATORVASTATIN 40 MG TAB PO (20:40)
[2018-12-19 06:01] LABS: ADD MAN DIFF? NO
[2018-12-19 06:07] LABS: WHITE BLOOD COUNT 2.5 10^3/ul (4.8-10.8)
[2018-12-19 06:07] LABS: ABNORMAL IP MESSAGE 1; BASOPHILS % 0.4 % (0.0-2.0); EOSINOPHILS % 0.4 % (0.0-7.0); HEMATOCRIT 40.1 % (42.0-52.0); HEMOGLOBIN 12.9 g/dl (14.0-18.0); LYMPHOCYTES # 0.4 10^3/ul (0.8-2.9); LYMPHOCYTES % 15.4 % (15.0-51.0); MEAN CORPUSCULAR HEMOGLOBIN 29.4 pg (29.0-33.0); MEAN CORPUSCULAR HGB CONC 32.2 g/dl (32.0-37.0); MEAN CORPUSCULAR VOLUME 91.3 fl (82.0-101.0); MEAN PLATELET VOLUME 11.7 fl (7.4-10.4); MONOCYTE # 0.5 10^3/ul (0.3-0.9); MONOCYTES % 20.9 % (0.0-11.0); NEUTROPHIL # 1.6 10^3/ul (1.6-7.5); NEUTROPHILS % 62.5 % (39.0-77.0); PLATELET COUNT 105 10^3/UL (140-415); POSITIVE DIFF @See below; RED BLOOD COUNT 4.39 10^6/ul (4.70-6.10)
[2018-12-19 07:09] LABS: ANION GAP 7 (5-13); BLOOD UREA NITROGEN 11 mg/dl (7-20); CALCIUM 8.8 mg/dl (8.4-10.2); CARBON DIOXIDE 29 mmol/L (21-31); CHLORIDE 105 mmol/L (97-110); CREATININE 0.78 mg/dl (0.61-1.24); GLUCOSE 84 mg/dl (70-220); POTASSIUM 4.2 mmol/L (3.5-5.1); SODIUM 141 mmol/L (135-144)
[2018-12-19] MEDS: POTASSIUM CHLORIDE (SR) 20 MEQ TAB PO (08:28)
[2018-12-19] MEDS: PANTOPRAZOLE (EC) 40 MG TAB PO (08:28)
[2018-12-19] MEDS: SUCRALFATE 1 GM TAB PO (08:28)
[2018-12-19] MEDS: APIXABAN 5 MG TABLET PO (08:28)
[2018-12-19] MEDS: DILTIAZEM (CD) 240 MG CAP PO (08:28)
[2018-12-19] MEDS: BUSPIRONE 5 MG TAB PO (08:28)
[2018-12-19] MEDS: NEOMYC/POLYMYX/HC 7.5 ML OPH BOTH EYES (08:28)
[2018-12-19] MEDS: ASPIRIN (EC) 81 MG TAB PO (08:28)
[2018-12-19] MEDS: THIAMINE 100 MG TAB PO (08:28)
[2018-12-19] MEDS: METOPROLOL (XL) 100 MG TAB PO (08:29)
== END 2018-12-19 16:05 | disposition home or self-care (01) | DRG 307 ==
LOC: 2NE 12-17 17:05 → E/R 11:21 → 2NE 12-17 20:15 → TEL 13:09
DX: I35.0 Nonrheumatic aortic (valve) stenosis (principal); I42.1 Obstructive hypertrophic cardiomyopathy; F10.239 Alcohol dependence with withdrawal, unspecified; N39.0 Urinary tract infection, site not specified; G93.40 Encephalopathy, unspecified; J44.9 Chronic obstructive pulmonary disease, unspecified; I48.91 Unspecified atrial fibrillation; I10 Essential (primary) hypertension; F41.9 Anxiety disorder, unspecified; D72.819 Decreased white blood cell count, unspecified; K21.9 Gastro-esophageal reflux disease without esophagitis; I25.10 Atherosclerotic heart disease of native coronary artery without angina pectoris; E78.5 Hyperlipidemia, unspecified; E87.6 Hypokalemia; Z95.5 Presence of coronary angioplasty implant and graft; Z87.891 Personal history of nicotine dependence
CPT/HCPCS: 36415; 70450; 71045; 80048; 80053; 80061; 82140; 82550; 82553; 83735; 83880; 84436; 84479; 84484; 85025; 85610; 85730; 87086; 93005; 96374; 99285-25; G0378

== ENCOUNTER 2019-06-24 11:49 | Inpatient (IN) | payer MEDICARE, BC ==
[2019-06-24 12:25] LABS: ABNORMAL IP MESSAGE 1; ADD MAN DIFF? NO; BASOPHILS % 0.4 % (0.0-2.0); EOSINOPHILS % 0.2 % (0.0-7.0); HEMATOCRIT 40.5 % (42.0-52.0); HEMOGLOBIN 12.1 g/dl (14.0-18.0); LYMPHOCYTES # 0.4 10^3/ul (0.8-2.9); LYMPHOCYTES % 8.5 % (15.0-51.0); MEAN CORPUSCULAR HEMOGLOBIN 25.3 pg (29.0-33.0); MEAN CORPUSCULAR HGB CONC 29.9 g/dl (32.0-37.0); MEAN CORPUSCULAR VOLUME 84.7 fl (82.0-101.0); MEAN PLATELET VOLUME 10.8 fl (7.4-10.4); MONOCYTE # 0.4 10^3/ul (0.3-0.9); MONOCYTES % 8.7 % (0.0-11.0); NEUTROPHIL # 3.8 10^3/ul (1.6-7.5); PLATELET COUNT 219 10^3/UL (140-415); POSITIVE DIFF @See below; RED BLOOD COUNT 4.78 10^6/ul (4.70-6.10); RED CELL DISTRIBUTION WIDTH 15.8 % (11.5-14.5)
[2019-06-24 12:25] LABS: WHITE BLOOD COUNT 4.6 10^3/ul (4.8-10.8)
[2019-06-24] MEDS: AMIODARONE 150MG/D5W BOLUS 100 ML IV ×2 (12:34→13:10)
[2019-06-24] MEDS: DILTIAZEM 25 MG INJ IV (12:55)
[2019-06-24 13:19] LABS: ANION GAP 9 (5-13)
[2019-06-24 13:20] LABS: BLOOD UREA NITROGEN 19 mg/dl (7-20); CALCIUM 9.2 mg/dl (8.4-10.2); CARBON DIOXIDE 25 mmol/L (21-31); CHLORIDE 105 mmol/L (97-110); CREATININE 0.79 mg/dl (0.61-1.24); GLUCOSE 118 mg/dl (70-220); POTASSIUM 4.4 mmol/L (3.5-5.1); SODIUM 139 mmol/L (135-144)
[2019-06-24 13:26] LABS: TROPONIN-I 0.047 ng/ml (0.000-0.120)
[2019-06-24] MEDS: DILTIAZEM-D5W 125MG/125ML DRIP 125 ML IV (13:53)
[2019-06-24] MEDS: ASPIRIN 325 MG TAB PO (14:21)
[2019-06-24] MEDS: FUROSEMIDE 20 MG INJ IV (14:30)
[2019-06-24] MEDS ORDERED: ACETAMINOPHEN 325 MG TAB PO ×2 (15:00→20:00)
[2019-06-24] MEDS ORDERED: ONDANSETRON 4 MG INJ IV ×2 (15:00→20:00)
[2019-06-24] MEDS: DIGOXIN 500 MCG INJ IV (15:50)
[2019-06-24] MEDS: METOPROLOL (XL) 50 MG TAB PO (16:12)
[2019-06-24] MEDS: METOPROLOL 25 MG TAB PO (17:34)
[2019-06-24 18:56] LABS: CREATINE KINASE 54 IU/L (23-200)
[2019-06-24 19:09] LABS: CK-MB 2.14 ng/ml (0.0-2.4); TROPONIN-I 0.067 ng/ml (0.000-0.120)
[2019-06-24] MEDS ORDERED: LORAZEPAM 0.5 MG TAB PO ×2 (20:00)
[2019-06-24] MEDS ORDERED: ZOLPIDEM 5 MG TAB PO (20:00)
[2019-06-24] MEDS ORDERED: NACL 0.9% 3 ML SYG IV (20:00)
[2019-06-24] MEDS ORDERED: morphine 2 MG INJ IV (20:00)
[2019-06-24] MEDS ORDERED: DOCUSATE SODIUM 100 MG CAP PO (20:00)
[2019-06-24] MEDS: BUSPIRONE 5 MG TAB PO (21:13)
[2019-06-24] MEDS: APIXABAN 5 MG TABLET PO (21:14)
[2019-06-24] MEDS: SUCRALFATE 1 GM TAB PO (21:14)
[2019-06-24] MEDS: METOPROLOL (XL) 100 MG TAB PO (22:01)
[2019-06-25 01:09] LABS: CREATINE KINASE 56 IU/L (23-200)
[2019-06-25 01:21] LABS: CK INDEX 3.5; CK-MB 1.98 ng/ml (0.0-2.4); TROPONIN-I 0.096 ng/ml (0.000-0.120)
[2019-06-25 05:31] LABS: ADD MAN DIFF? NO
[2019-06-25 05:40] LABS: ABNORMAL IP MESSAGE 1; BASOPHILS % 0.8 % (0.0-2.0); EOSINOPHILS # 0.1 10^3/ul (0.0-0.5); EOSINOPHILS % 1.7 % (0.0-7.0); HEMATOCRIT 36.3 % (42.0-52.0); LYMPHOCYTES # 0.6 10^3/ul (0.8-2.9); LYMPHOCYTES % 15.6 % (15.0-51.0); MEAN CORPUSCULAR HEMOGLOBIN 25.6 pg (29.0-33.0); MEAN CORPUSCULAR HGB CONC 30.3 g/dl (32.0-37.0); MEAN CORPUSCULAR VOLUME 84.4 fl (82.0-101.0); MEAN PLATELET VOLUME 11.4 fl (7.4-10.4); MONOCYTE # 0.6 10^3/ul (0.3-0.9); MONOCYTES % 15.3 % (0.0-11.0); NEUTROPHIL # 2.4 10^3/ul (1.6-7.5); PLATELET COUNT 197 10^3/UL (140-415); POSITIVE DIFF @See below; RED CELL DISTRIBUTION WIDTH 15.9 % (11.5-14.5)
[2019-06-25 05:40] LABS: WHITE BLOOD COUNT 3.6 10^3/ul (4.8-10.8)
[2019-06-25] MEDS: PANTOPRAZOLE (EC) 40 MG TAB PO (05:56)
[2019-06-25 06:36] LABS: ALANINE AMINOTRANSFERASE 21 IU/L (13-69); ALBUMIN 3.1 g/dl (3.3-4.9); ALBUMIN/GLOBULIN RATIO 0.93; ALKALINE PHOSPHATASE 66 IU/L (42-121); ANION GAP 7 (5-13); ASPARTATE AMINO TRANSFERASE 34 IU/L (15-46); BLOOD UREA NITROGEN 14 mg/dl (7-20); CALCIUM 8.4 mg/dl (8.4-10.2); CARBON DIOXIDE 25 mmol/L (21-31); CHLORIDE 106 mmol/L (97-110); CREATININE 0.73 mg/dl (0.61-1.24); GLUCOSE 75 mg/dl (70-220); MAGNESIUM 1.9 mg/dl (1.7-2.5); POTASSIUM 3.7 mmol/L (3.5-5.1); SODIUM 138 mmol/L (135-144); TOTAL PROTEIN 6.4 g/dl (6.1-8.1)
[2019-06-25] MEDS: ATORVASTATIN 20 MG TAB PO (08:27)
[2019-06-25] MEDS: BUSPIRONE 5 MG TAB PO ×2 (08:28→22:16)
[2019-06-25] MEDS: APIXABAN 5 MG TABLET PO ×2 (08:28→21:35)
[2019-06-25] MEDS: SUCRALFATE 1 GM TAB PO ×2 (08:28→21:34)
[2019-06-25] MEDS: ASPIRIN (EC) 81 MG TAB PO (08:28)
[2019-06-25] MEDS: METOPROLOL (XL) 100 MG TAB PO ×2 (08:32→21:35)
[2019-06-25] MEDS: METOPROLOL (XL) 50 MG TAB PO (08:32)
[2019-06-25] MEDS ORDERED: PANTOPRAZOLE (EC) 40 MG TAB PO (09:00)
[2019-06-25] MEDS: MAGNESIUM SULFATE 2 GM/50 ML 50 ML IVPB (11:03)
[2019-06-25] MEDS: POTASSIUM CHLORIDE (SR) 20 MEQ TAB PO (11:03)
[2019-06-25] MEDS: DIGOXIN 0.25 MG TAB PO (14:20)
[2019-06-25] MEDS: DILTIAZEM (CD) 180 MG CAP PO ×2 (14:21→21:35)
[2019-06-26] MEDS: PANTOPRAZOLE (EC) 40 MG TAB PO (05:54)
[2019-06-26] MEDS: DILTIAZEM (CD) 120 MG CAP PO (09:24)
[2019-06-26] MEDS: METOPROLOL (XL) 100 MG TAB PO (09:25)
[2019-06-26] MEDS: ATORVASTATIN 20 MG TAB PO (09:25)
[2019-06-26] MEDS: SUCRALFATE 1 GM TAB PO (09:25)
[2019-06-26] MEDS: APIXABAN 5 MG TABLET PO (09:25)
[2019-06-26] MEDS: AMIODARONE 200 MG TAB PO (09:26)
[2019-06-26] MEDS: BUSPIRONE 5 MG TAB PO (09:26)
== END 2019-06-26 16:38 | disposition home or self-care (01) | DRG 309 ==
LOC: E/R 11:49 → 6WM 06-25 15:35 → ICU 14:32
DX: I48.92 Unspecified atrial flutter (principal); I24.8 Other forms of acute ischemic heart disease; I44.7 Left bundle-branch block, unspecified; I42.2 Other hypertrophic cardiomyopathy; I25.10 Atherosclerotic heart disease of native coronary artery without angina pectoris; I35.0 Nonrheumatic aortic (valve) stenosis; I10 Essential (primary) hypertension; F41.9 Anxiety disorder, unspecified; R00.0 Tachycardia, unspecified; Z95.2 Presence of prosthetic heart valve; Z95.5 Presence of coronary angioplasty implant and graft; Z86.73 Personal history of transient ischemic attack (TIA), and cerebral infarction without residual deficits; Z87.891 Personal history of nicotine dependence; Z79.01 Long term (current) use of anticoagulants; Z79.82 Long term (current) use of aspirin
CPT/HCPCS: 36415; 71045; 80048; 80053; 82550; 82553; 83735; 84484; 85025; 87081; 93005; 96374; 96375; 96376; 99285-25

== ENCOUNTER 2019-06-30 10:47 | Inpatient (IN) | payer MEDICARE, BC ==
[2019-06-30] MEDS ORDERED: AMIODARONE 900 MG in DEXTROSE 5% 482 ML IV (11:30)
[2019-06-30] MEDS: ASPIRIN 81 MG TAB PO (11:53)
[2019-06-30] MEDS: AMIODARONE 150MG/D5W BOLUS IV* (11:54)
[2019-06-30] MEDS ORDERED: ACETAMINOPHEN 325 MG TAB PO (12:00)
[2019-06-30] MEDS ORDERED: ONDANSETRON 4 MG INJ IV (12:00)
[2019-06-30] MEDS: AMIODARONE 900 MG in DEXTROSE 5% 482 ML IV (12:26)
[2019-06-30] MEDS: SOD CHLORIDE 0.9% 1,000 ML IV (12:30)
[2019-06-30] MEDS: METOPROLOL (XL) 50 MG TAB PO (21:00)
[2019-06-30] MEDS: DILTIAZEM (CD) 180 MG CAP PO (21:00)
[2019-06-30] MEDS: APIXABAN 5 MG TABLET PO (22:05)
[2019-06-30] MEDS ORDERED: ZOLPIDEM 5 MG TAB PO (22:30)
[2019-07-01] MEDS: APIXABAN 5 MG TABLET PO ×2 (09:28→22:01)
[2019-07-01] MEDS: DILTIAZEM (CD) 180 MG CAP PO (09:28)
[2019-07-01] MEDS: METOPROLOL (XL) 50 MG TAB PO ×2 (09:30→22:04)
[2019-07-01] MEDS: morphine 4 MG/ML VIAL IV (14:30)
[2019-07-01] MEDS ORDERED: FENTAnyl 50 MCG/ML VIAL ×2 (15:53)
[2019-07-01] MEDS ORDERED: MIDAZOLAM 1 MG/ML 2 ML INJ ×2 (15:53)
[2019-07-01] MEDS ORDERED: FLUMAZENIL 0.5 MG INJ (16:23)
[2019-07-01] MEDS ORDERED: SOD CHLORIDE 0.9% 500 ML (16:33)
[2019-07-01] MEDS ORDERED: AL HYDROX/MG HYDROX/SIMETH 30 ML CUP PO (17:00)
[2019-07-01] MEDS ORDERED: morphine 2 MG INJ IV (17:00)
[2019-07-01] MEDS ORDERED: ONDANSETRON 4 MG INJ IV (17:00)
[2019-07-02] MEDS: APIXABAN 5 MG TABLET PO (08:48)
[2019-07-02] MEDS: METOPROLOL (XL) 50 MG TAB PO (08:48)
[2019-07-02] MEDS: AMIODARONE 200 MG TAB PO (08:49)
== END 2019-07-02 14:40 | disposition home or self-care (01) | DRG 310 ==
LOC: E/R 10:47 → TEL 17:05
PROC: 5A2204Z Restoration of Cardiac Rhythm, Single (ICD-10-PCS; principal; 2019-07-01 16:10)
DX: I48.92 Unspecified atrial flutter (principal); D72.819 Decreased white blood cell count, unspecified; Z95.2 Presence of prosthetic heart valve; I48.0 Paroxysmal atrial fibrillation; I25.10 Atherosclerotic heart disease of native coronary artery without angina pectoris; I10 Essential (primary) hypertension; F41.9 Anxiety disorder, unspecified; E78.5 Hyperlipidemia, unspecified; M19.90 Unspecified osteoarthritis, unspecified site; R07.89 Other chest pain; K21.9 Gastro-esophageal reflux disease without esophagitis; Z79.01 Long term (current) use of anticoagulants; Z79.82 Long term (current) use of aspirin; Z87.891 Personal history of nicotine dependence; Z95.0 Presence of cardiac pacemaker; Z95.5 Presence of coronary angioplasty implant and graft
CPT/HCPCS: 36415; 71045; 80048; 80307; 82550; 82553; 83735; 83880; 84439; 84443; 84484; 85025; 92960; 93005; 99285-25